=== PATIENT | male | born 1935 | race Caucasian/White ===

== ENCOUNTER 2019-05-22 11:04 | Inpatient (IN) | payer MEDICARE, MEDICAID ==
--- NOTE | 2019-05-22 11:38 | EDM.PDOC ---
ED HPI GENERAL MEDICAL PROBLEM - General Chief Complaint: Cardiovascular Problem Stated Complaint: SWOLLEN FEET, POOR APPETITIE, FALLS Time Seen by Provider: 05/22/19 11:28 Source of Information: Reports: Patient, Family History Limitations: Reports: No Limitations - History of Present Illness INITIAL COMMENTS - FREE TEXT/NARRATIVE: Presents to the emergency department today along with his son and daughter with complaints of increased fluid to the feet, and lower legs bilateral. He denies any chest pain or shortness of breath at this time. Acknowledges some urinary incontinence. Was hospitalized at [facility] in [facility], on 29 April for 3 days, secondary of elevated troponin where he experienced an KS denying open- heart surgery/stenting according to the history given by the son and daughter. [place] that it his age he was not willing to undergo this type of invasive therapy. He was discharged 3 days later using JOEL hose which he stated started cutting into his legs as he did not remove them and was wearing them 24 7. After cutting them from his legs and feet. He states the fluid may have improved slightly. His continued weakness and persistent pressure and fluid development to the lower extremities. Weakness is more exertional with decrease in appetite as well as limitations to his activity which may be related to the previous KS diagnosis. He was seen throughout numerous years through the [facility] cancer center in [place] for evaluation and treatment of prostate cancer with recent change and increased his therapy there with a scheduled three-month repeat secondary to an elevation of his PSA from the previous month checkup with PSA reading 3 at that time, now 7+ according to his son. No records are available at this time on any of these previous visits. Onset: Gradual Duration: Day(s):, Chronic, Constant, Getting Worse Location: Reports: Lower Extremity, Left, Lower Extremity, Right Quality: Reports: Pressure Severity: Moderate Improves with: Reports: None Worsens with: Reports: None Context: Reports: Activity Associated Symptoms: Reports: Loss of Appetite, Weakness - Related Data Allergies Allergy/AdvReac Type Severity Reaction Status Date / Time Sulfa (Sulfonamide Allergy Rash Verified 05/22/19 11:32 Antibiotics) Home Meds: Home Meds Enzalutamide [Xtandi] 40 mg PO DAILY 05/22/19 [History] Escitalopram [Lexapro] 10 mg PO DAILY 05/22/19 [History] Levothyroxine [Synthroid] 50 mcg PO ACBREAKFAST 05/22/19 [History] Metoprolol Tartrate [Lopressor] 12.5 mg PO BID 05/22/19 [History] atorvaSTATin [Lipitor] 40 mg PO BEDTIME 05/22/19 [History] Past Medical History HEENT History: Reports: Hard of Hearing Cardiovascular History: Reports: CAD, High Cholesterol, KS Respiratory History: Reports: None Gastrointestinal History: Reports: None Genitourinary History: Reports: BPH, Prostate Disorder Musculoskeletal History: Reports: None Psychiatric History: Reports: Depression Endocrine/Metabolic History: Reports: Hypothyroidism Hematologic History: Reports: None Immunologic History: Reports: None - Past Surgical History HEENT Surgical History: Reports: Cataract Surgery (Bilateral), Oral Surgery ( Extractions) Cardiovascular Surgical History: Reports: None Respiratory Surgical History: Reports: None GI Surgical History: Reports: Appendectomy (Ruptured in the eighth grade), Hernia, Inguinal (2 (bilateral)) Male Surgical History: Reports: Prostate Biopsy Endocrine Surgical History: Reports: None Neurological Surgical History: Reports: None Musculoskeletal Surgical History: Reports: None Social & Family History - Family History Family Medical History: Unobtainable - Tobacco Use Smoking Status *Q: Former Smoker Tobacco Use Within Last Twelve Months: Cigarettes Years of Tobacco use: 50 (Never inhaled) Used Tobacco, but Quit: Yes Second Hand Smoke Exposure: No - Caffeine Use Caffeine Use: Reports: Coffee. Denies: Energy Drinks - Alcohol Use Alcohol Use History: Yes Date of Last Drink: 03/03/14 Alcohol Use in Last Twelve Months: No - Recreational Drug Use Recreational Drug Use: No Drug Use in Last 12 Months: No - Sexual History Sexual History: Reports: Single Partner - Living Situation & Occupation Living situation: Reports: , Alone (Son and daughter speak of "hoarding " conditions of the home) Occupation: Retired ED ROS GENERAL - Review of Systems Review Of Systems: See Below Constitutional: Reports: Weakness, Fatigue, Decreased Appetite. Denies: Fever, Chills HEENT: Reports: Glasses (Reading glasses) Respiratory: Reports: Shortness of Breath Cardiovascular: Reports: Chest Pain (Thought muscle strain at time of KS in March. Intermittent feeling but no true admission of pain) Endocrine: Reports: Fatigue GI/Abdominal: Reports: Decreased Appetite : Reports: Incontinence Musculoskeletal: Reports: Other (Generalized aches and pains with weakness) Skin: Reports: Change in Color, Lesions (Left lower chest below the left nipple) Neurological: Reports: No Symptoms Psychiatric: Reports: No Symptoms Hematologic/Lymphatic: Reports: No Symptoms Immunologic: Reports: No Symptoms ED EXAM, GENERAL - Physical Exam Exam: See Below Exam Limited By: No Limitations General Appearance: Alert, WD/WN, No Apparent Distress Ears: Normal External Exam, Normal Canal, Hearing Grossly Normal, Normal TMs Nose: Normal Inspection, Normal Mucosa, No Blood Throat/Mouth: Normal Inspection, Normal Lips, Normal Oropharynx, Normal Voice, No Airway Compromise. No: Normal Teeth (Significant erosion of the upper dentition with only remnants of the front incisors. Lower dentition shows canine and incisor with erosion to the gumline's predominantly on the right side of the molars), Normal Gums Head: Atraumatic, Normocephalic Neck: Normal Inspection, Supple, Non-Tender, Full Range of Motion. No: Carotid Bruit, Lymphadenopathy (L) Respiratory/Chest: No Respiratory Distress, Lungs Clear, Normal Breath Sounds, No Accessory Muscle Use, Prolonged Expiration Cardiovascular: Normal Peripheral Pulses, Regular Rate, Rhythm (Bradycardic), No Gallop, No JVD, No Murmur, Bradycardia. No: No Edema (To the lower leg ankle and foot +3) GI/Abdominal: Normal Bowel Sounds, Soft, Non-Tender, No Distention (Male) Exam: No Hernia Rectal (Males) Exam: Normal Exam, Normal Rectal Tone, Heme - Stool. No: Prostate Normal (Enlarged), Black Stool Back Exam: Normal Inspection, Full Range of Motion Extremities: Normal Range of Motion, Non-Tender, Pedal Edema, Slow Capillary Refill Neurological: Alert, Oriented, CN II-XII Intact, Normal Cognition Psychiatric: Normal Affect, Normal Mood Skin Exam: Warm, Dry, Intact, Other (Black skin lesion 1.4 cm x 1 cm to the left lower anterior chest wall to the inferior lateral of the left nipple) Lymphatic: No Adenopathy EKG INTERPRETATION EKG Date: 05/22/19 Time: 12:09 Rhythm: Other (Bradycardia rate of 51) Rate (Beats/Min): 51 ST-T: Depressed QT: Prolonged Comparison: Change From Previous EKG EKG Interpretation Comments: Her symptoms are faxed from [facility] in [facility] with limited quality. Mr. [place] was admitted and to the best understanding offered invasive correction or his workup. I do not have any enzyme or lab results from that visit at this time but is prior EKG showed an inferior infarct of undetermined age with anterior and inferior lateral ischemic infarct changes. Today shows depressed T waves in the inferior leads as well as anterior lateral Course - Vital Signs Last Recorded V/S: Last Vital Signs Temp 36.3 C 05/22/19 11:04 Pulse 84 05/22/19 11:04 Resp 16 05/22/19 11:04 BP 120/81 05/22/19 11:04 Pulse Ox 97 05/22/19 11:04 - Orders/Labs/Meds Orders: Active Orders 24 hr Category Date Time Status EKG Documentation Completion [RC] ASDIRECTED Care 05/22/19 11:44 Active Blanchard Catheter Insertion [Insert Urinary Catheter] [OM. Care 05/22/19 12:45 Ordered PC] Q24H Urinary Catheter Assessment [RC] ASDIRECTED Care 05/22/19 12:45 Active CULTURE URINE [RM] Urgent Lab 05/22/19 12:59 Received MISCELLANEOUS CULT [MREF] Routine Lab 05/22/19 12:59 Received MISCELLANEOUS CULT [MREF] Stat Lab 05/22/19 12:59 Received PSA-EIA [REF] Stat Lab 05/22/19 11:50 Received EKG 12 Lead [EK] Routine Ther 05/22/19 11:44 Ordered Labs: Laboratory Tests 05/22/19 05/22/19 05/22/19 Range/Units 11:50 11:50 11:50 WBC 7.82 (5.00-10.00) 10^3/uL RBC 4.41 L (4.50-6.00) 10^6/uL Hgb 13.6 (13.0-17.0) g/dL Hct 40.4 (40.0-52.0) % MCV 91.6 (82.0-92.0) fL MCH 30.8 (27.0-31.0) pg MCHC 33.7 (32.0-36.0) g/dL RDW 13.8 (11.5-14.5) % Plt Count 236 (150-400) 10^3/uL MPV 10.5 H (7.4-10.4) fL Immature Gran % (Auto) 0.3 (0.0-5.0) % Neut % (Auto) 70.0 (50.0-70.0) % Lymph % (Auto) 17.9 L (20.0-40.0) % [place] % (Auto) 7.0 (2.0-8.0) % Eos % (Auto) 4.3 H (1.0-3.0) % Baso % (Auto) 0.5 (0.0-1.0) % Immature Gran # (Auto) 0.02 (0.00-0.50) 10^3/uL Neut # (Auto) 5.47 (2.50-7.00) 10^3/uL Lymph # (Auto) 1.40 (1.00-4.00) 10^3/uL [place] # (Auto) 0.55 (0.10-0.80) 10^3/uL Eos # (Auto) 0.34 H (0.10-0.30) 10^3/uL Baso # (Auto) 0.04 (0.00-0.10) 10^3/uL Sodium 145 (136-145) mmol/L Potassium 4.0 (3.3-5.3) mmol/L Chloride 105 (98-115) mmol/L Carbon Dioxide 25.0 (21.0-32.0) mmol/L Anion Gap 19.0 H (5-15) mmol/L BUN 18 (6-25) mg/dL Creatinine 1.34 H (0.51-1.17) mg/dL Est Cr Clr Drug Dosing 34.40 mL/min Estimated GFR (MDRD) 51 mL/min Glucose 68 L (75 - 99) mg/dL Calcium 9.9 (8.7-10.3) mg/dL Total Bilirubin 1.4 H (0.2-1.0) mg/dL AST 14 L (15-37) U/L ALT 12 (12-78) U/L Alkaline Phosphatase 98 (46-116) IU/L Creatine Kinase 27 (26-276) U/L CK-MB (CK-2) 1.40 (0.00-4.30) ng/mL Troponin I 0.11 H* (0.00-0.070) ng/mL B-Natriuretic Peptide 77 (0-100) pg/mL Total Protein 6.1 L (6.4-8.2) g/dL Albumin 3.24 (3.00-4.80) g/dL TSH, Ultra Sensitive 1.780 (0.340-4.820) uIU/mL Specimen Type Urine Color (YELLOW) Urine Appearance (CLEAR) Urine pH (5.0-9.0) Ur Specific [place] (1.005-1.030) Urine Protein (NEGATIVE) mg/dL Urine Glucose (UA) (NEGATIVE) mg/dL Urine Ketones (NEGATIVE) mg/dL Urine Occult Blood (NEGATIVE) Urine Nitrite (NEGATIVE) Urine Bilirubin (NEGATIVE) Urine Urobilinogen (0.2-1.0) E.U./dL Ur Leukocyte Esterase (NEGATIVE) Urine RBC (0-5) /HPF Urine WBC (0-5) /HPF Ur Epithelial Cells /LPF Urine Bacteria (NONE TO FEW) /HPF 05/22/19 Range/Units 12:59 WBC (5.00-10.00) 10^3/uL RBC (4.50-6.00) 10^6/uL Hgb (13.0-17.0) g/dL Hct (40.0-52.0) % MCV (82.0-92.0) fL MCH (27.0-31.0) pg MCHC (32.0-36.0) g/dL RDW (11.5-14.5) % Plt Count (150-400) 10^3/uL MPV (7.4-10.4) fL Immature Gran % (Auto) (0.0-5.0) % Neut % (Auto) (50.0-70.0) % Lymph % (Auto) (20.0-40.0) % [place] % (Auto) (2.0-8.0) % Eos % (Auto) (1.0-3.0) % Baso % (Auto) (0.0-1.0) % Immature Gran # (Auto) (0.00-0.50) 10^3/uL Neut # (Auto) (2.50-7.00) 10^3/uL Lymph # (Auto) (1.00-4.00) 10^3/uL [place] # (Auto) (0.10-0.80) 10^3/uL Eos # (Auto) (0.10-0.30) 10^3/uL Baso # (Auto) (0.00-0.10) 10^3/uL Sodium (136-145) mmol/L Potassium (3.3-5.3) mmol/L Chloride (98-115) mmol/L Carbon Dioxide (21.0-32.0) mmol/L Anion Gap (5-15) mmol/L BUN (6-25) mg/dL Creatinine (0.51-1.17) mg/dL Est Cr Clr Drug Dosing mL/min Estimated GFR (MDRD) mL/min Glucose (75 - 99) mg/dL Calcium (8.7-10.3) mg/dL Total Bilirubin (0.2-1.0) mg/dL AST (15-37) U/L ALT (12-78) U/L Alkaline Phosphatase (46-116) IU/L Creatine Kinase (26-276) U/L CK-MB (CK-2) (0.00-4.30) ng/mL Troponin I (0.00-0.070) ng/mL B-Natriuretic Peptide (0-100) pg/mL Total Protein (6.4-8.2) g/dL Albumin (3.00-4.80) g/dL TSH, Ultra Sensitive (0.340-4.820) uIU/mL Specimen Type . Urine Color Yellow (YELLOW) Urine Appearance Slightly cloudy H (CLEAR) Urine pH 5.5 (5.0-9.0) Ur Specific [place] 1.025 (1.005-1.030) Urine Protein 100 H (NEGATIVE) mg/dL Urine Glucose (UA) Negative (NEGATIVE) mg/dL Urine Ketones 15 H (NEGATIVE) mg/dL Urine Occult Blood Large H (NEGATIVE) Urine Nitrite Positive H (NEGATIVE) Urine Bilirubin Negative (NEGATIVE) Urine Urobilinogen 1.0 (0.2-1.0) E.U./dL Ur Leukocyte Esterase Small H (NEGATIVE) Urine RBC 75-100 H (0-5) /HPF Urine WBC 40-50 H (0-5) /HPF Ur Epithelial Cells Occasional /LPF Urine Bacteria Moderate H (NONE TO FEW) /HPF - Radiology Interpretation Free Text/Narrative:: Chest x-ray shows no evidence of hemopneumothorax, no infiltrate, old rib fractures to the left side noted. No cardiomegaly is appreciated. Extreme kyphosis noted - Re-Assessments/Exams Free Text/Narrative Re-Assessment/Exam: 05/22/19 13:54 Discussed further the aspects of the ischemic changes on his EKG which are now confirmed with a positive troponin. Departure - Departure Time of Disposition: 15:47 Disposition: Admitted As Inpatient 68 Condition: Fair Clinical Impression: KS, Myocardial infarction, Elevated troponin I level, Renal failure, Hypothyroid, Decubitus ulcer of buttock, stage 2, Skin lesion of chest wall, Pedal edema, UTI (urinary tract infection), bacterial - Discharge Information *PRESCRIPTION DRUG MONITORING PROGRAM REVIEWED*: Not Applicable *COPY OF PRESCRIPTION DRUG MONITORING REPORT IN PATIENT RHYS: Not Applicable Referrals: Latoya Brar MD [Primary Care Provider] - Forms: ED Department Discharge Additional Instructions: This case was discussed with Dr. Latoya Sneed who agrees to the admission to her services. - Problem List & Annotations (1) Elevated troponin I level SNOMED Code(s): 440066659 Code(s): R74.8 - ABNORMAL LEVELS OF OTHER SERUM ENZYMES Status: Acute Priority: High Current Visit: Yes Annotation/Comment:: Will be admitted acute rule out KS with serial enzymes (2) Renal failure SNOMED Code(s): 21179714 Code(s): N19 - UNSPECIFIED KIDNEY FAILURE Status: Acute Priority: High Current Visit: Yes Annotation/Comment:: Cautiously provide hydration due to decreased oral intake and monitor electrolytes as well as cardiovascular status Qualifiers: Renal failure chronicity: acute on chronic Chronic kidney disease stage: stage 2 (mild) (3) Hypothyroid SNOMED Code(s): 68277009 Code(s): E03.9 - HYPOTHYROIDISM, UNSPECIFIED Status: Acute Priority: Medium Current Visit: Yes Annotation/Comment:: Thyroid at this time on current dose (4) Decubitus ulcer of buttock, stage 2 SNOMED Code(s): 15804805426068965 Code(s): L89.302 - PRESSURE ULCER OF UNSPECIFIED BUTTOCK, STAGE 2 Status: Acute Priority: High Current Visit: Yes Annotation/Comment:: Bilateral superior gluteus Qualifiers: Laterality: right Qualified Code(s): L89.312 - Pressure ulcer of right buttock, stage 2 (5) Skin lesion of chest wall SNOMED Code(s): 39710504, 058051028, 812136656 Code(s): L98.9 - DISORDER OF THE SKIN AND SUBCUTANEOUS TISSUE, UNSPECIFIED Status: Chronic Priority: Medium Current Visit: Yes (6) Pedal edema SNOMED Code(s): 397171387 Code(s): R60.0 - LOCALIZED EDEMA Status: Chronic Priority: High Current Visit: Yes Annotation/Comment:: Has not resolved since discharge from [facility] may but has not been taking diuretics, or using compression stockings (7) UTI (urinary tract infection), bacterial SNOMED Code(s): 546350700 Code(s): N39.0 - URINARY TRACT INFECTION, SITE NOT SPECIFIED; A49.9 - BACTERIAL INFECTION, UNSPECIFIED Status: Acute Current Visit: Yes Annotation/Comment:: Likely due to urinary retention and incontinence (8) Decubitus ulcer of buttock, stage 2 SNOMED Code(s): 08462103546181832 Code(s): L89.302 - PRESSURE ULCER OF UNSPECIFIED BUTTOCK, STAGE 2 Status: Acute Priority: High Current Visit: Yes Annotation/Comment:: bilateral Qualifiers: Laterality: left Qualified Code(s): L89.322 - Pressure ulcer of left buttock, stage 2 - Problem List Review Problem List Initiated/Reviewed/Updated: Yes - My Orders Last 24 Hours: My Active Orders 05/22/19 11:44 EKG Documentation Completion [RC] ASDIRECTED EKG 12 Lead [EK] Routine 05/22/19 11:50 PSA-EIA [REF] Stat 05/22/19 12:45 Blanchard Catheter Insertion [Insert Urinary Catheter] [OM.PC] Q24H Urinary Catheter Assessment [RC] ASDIRECTED 05/22/19 12:59 CULTURE URINE [RM] Urgent MISCELLANEOUS CULT [MREF] Routine MISCELLANEOUS CULT [MREF] Stat - Assessment/Plan Admission H&P: Please use this note as an admission H&P Last 24 Hours: My Active Orders 05/22/19 11:44 EKG Documentation Completion [RC] ASDIRECTED EKG 12 Lead [EK] Routine 05/22/19 11:50 PSA-EIA [REF] Stat 05/22/19 12:45 Blanchard Catheter Insertion [Insert Urinary Catheter] [OM.PC] Q24H Urinary Catheter Assessment [RC] ASDIRECTED 05/22/19 12:59 CULTURE URINE [RM] Urgent MISCELLANEOUS CULT [MREF] Routine MISCELLANEOUS CULT [MREF] Stat Plan: Will be admitted to the floor acute status rule out KS with serial cardiac enzymes. Daily monitoring of CBC BMP in the a.m. We will cautiously provide IV fluid at 100 mils per hour for the remainder of the day. We'll review of bear a discharge summary once arrived for the aspect of diuretic therapy that the son Bal states was provided but is not listed in the medication list. Be admitted to Dr. Latoya Sneed service
--- NOTE | 2019-05-22 12:18 | CR ---
[id number] RAD/RAD Chest PA And Lateral EXAM: RAD Chest PA And Lateral INDICATION: FLUID RETENTION, PRIOR [place] COMPARISON: None. DISCUSSION: Cardiomediastinal silhouette is stable in size and contour. No infiltrate, effusion, pneumothorax, or edema. Pulmonary hyperinflation. IMPRESSION: No acute cardiopulmonary abnormality. Seamus Disla DO 05/22/19 [id number] Thank you for allowing us to participate in the care of your patient.
[2019-05-22] MEDS ORDERED: Heparin Sodium 5,000 Units/ML Vial SUBCUT SCH (15:45)
[2019-05-22] MEDS ORDERED: Furosemide 40 MG/4 ML VIAL IVPUSH ONE (16:06)
[2019-05-22] MEDS: Sodium Chloride 0.9% 1,000 ML IV SCH (16:30)
[2019-05-22] MEDS: Heparin Sodium 5,000 Units/ML Vial SUBCUT SCH (16:36)
[2019-05-22] MEDS: Acetaminophen 325 MG Tab PO PRN (16:41)
[2019-05-22] MEDS ORDERED: cefTRIAXone 1 GM Vial IVPUSH SCH (17:00)
[2019-05-22] MEDS ORDERED: atorvaSTATin 40 MG Tab PO SCH (21:00)
[2019-05-22] MEDS: Metoprolol Tartrate 25 MG Tab PO SCH (22:04)
[2019-05-23] MEDS: Sodium Chloride 0.9% 1,000 ML IV SCH (03:03)
[2019-05-23] MEDS: Acetaminophen 325 MG Tab PO PRN (03:04)
[2019-05-23] MEDS: Heparin Sodium 5,000 Units/ML Vial SUBCUT SCH ×2 (06:38→08:17)
[2019-05-23] MEDS ORDERED: Levothyroxine 50 MCG Tab PO SCH (07:30)
[2019-05-23 07:59] LABS: ANION GAP 15.6 mmol/L (5-15)
[2019-05-23] MEDS ORDERED: Escitalopram 10 MG Tab PO SCH (09:00)
[2019-05-23] MEDS ORDERED: ENZALUTAMIDE 40 MG PO SCH (09:00)
[2019-05-23] MEDS: Metoprolol Tartrate 25 MG Tab PO SCH (09:28)
[2019-05-23 10:11] VITALS: BP 99/62; PULSE 63
--- NOTE | 2019-05-23 10:18 | PCM.DCSUM1 ---
Discharge Summary - Hospital Course Free Text/Narrative:: Juan is being discharged from an overnight stay 05/22/19 - 05/23/19 for elevated troponin. Of note, he was admitted to [facility] in [place] for 3 days with a NSTEMI on 04/29/19 and he reportedly refused any treatment aside from the heparin drip. He declined angiogram and echocardiography. He was discharged on atorvastatin and metoprolol. His family is very concerned about See's living situation. For the past 30 years See states he has lived in a home with no running water or electricity. The home is heated with gas. He eats non-perishable food items and can cook on a gas stove. He states for bathing he will use alcohol on a wash cloth. Reportedly the home "would be condemed" per family. They had wanted to place Juan in the NH but he does not want to go there. He is also on a very expensive medication for his stage IV terminal prostate cancer, Xtandi, and reportedly even if he wanted to go to the [place] he was denied due to the cost of that medication. He is very adamant that he wants to continue on this medication. I believe the reason he came to the ER is that his family was concerned for his well-being and said he had some lower extremity edema and he was found to have this elevated troponin in the ER. He again stated that he would not want anything done for this. He was noted to have a UTI also and was given ceftriaxone. He has a sulfa allergy. His troponins trended down, initial was 0.11, repeat was 0.06 and 0.07. He never had chest pain. EKG was unchanged from prior done in March at [facility]. He was able to walk with a walker to the bathroom without assistance. He ate well here and had a BM as well. He is thin and states he wasn't eating much at home because he did not have much of an appetite. His family wanted him placed in the NH from the ER yesterday, not fully understanding that is not something we are able to do. Social work was involved in Juan's care and he is very clear he does not want to go to the [place] stating "there are over 60,000 people who live in their cars, at least I have a roof over my head. I've been living this was for 30 years and I've done alright ". He will be discharged back to home, which is certainly not an ideal home but he declines the NH and continues to want treatment for his prostate cancer. I do not have any diagnosis that would allow him to stay in the hospital and he appears able to make his own decisions. His family may need to consider getting the county involved in evaluation of his living situation and perhaps legally take steps to declare him incompetent, if that is the direction they would choose. Admission diagnoses: Elevated troponin UTI Discharge Diagnoses: Elevated troponin, possible NSTEMI, patient declined treatment or transfer, troponins have normalized. UTI, will treat with Keflex 500 mg PO TID x 14 days. Blanchard catheter was placed upon admission but removed prior to discharge. Secondary, chronic diagnoses: Lower extremity edema, mild Stage IV prostate cancer Hypothyoridism Vit B12 deficiency CKD Depression Protein calorie malnutrition, Low BMI 17.8 with reduced oral intake. He has CKD and malignant disease Unsteady gait, uses a walker, no problems with ambulation during this stay Diagnosis: Stroke: No Modified Savage Scale: No Symptoms at All Modified [place] Scale Score: 0 - Discharge Data Discharge Date: 05/23/19 Discharge Disposition: Home, Self-Care 01 Condition: Fair - Referral to Home Health Primary Care Physician: Latoya Brar MD - Patient Summary/Data Consults: Consultations 05/22/19 16:17 Consult to Case Management/Track Mechanic [CONS] Routine 05/22/19 17:54 Consult to Dietary [Consult to Record Producer] [CONS] Routine Labs Pending at D/C: Urine culture - Patient Instructions Diet: Usual Diet as Tolerated - Discharge Plan *PRESCRIPTION DRUG MONITORING PROGRAM REVIEWED*: Not Applicable *COPY OF PRESCRIPTION DRUG MONITORING REPORT IN PATIENT RHYS: Not Applicable Prescriptions/Med Rec: Cephalexin [Keflex] 500 mg PO TID 14 Days #42 capsule Home Medications: Home Meds Enzalutamide [Xtandi] 160 mg PO DAILY 05/22/19 [History] Escitalopram [Lexapro] 10 mg PO DAILY 05/22/19 [History] Levothyroxine [Synthroid] 50 mcg PO ACBREAKFAST 05/22/19 [History] Metoprolol Tartrate [Lopressor] 12.5 mg PO BID 05/22/19 [History] atorvaSTATin [Lipitor] 40 mg PO BEDTIME 05/22/19 [History] Cephalexin [Keflex] 500 mg PO TID 14 Days #42 capsule 05/23/19 [Rx] Forms: ED Department Discharge - Discharge Summary/Plan Comment DC Time >30 min.: No - General Info Date of Service: 05/23/19 - Patient Data Vitals - Most Recent: Last Vital Signs Temp 97.0 F 05/23/19 07:00 Pulse 63 05/23/19 09:28 Resp 20 05/23/19 07:00 BP 99/62 05/23/19 09:28 Pulse Ox 95 05/23/19 07:00 Weight - Most Recent: 110 lb I&O - Last 24 hours: Intake & Output 05/22/19 05/23/19 05/23/19 22:59 06:59 14:59 Intake Total 820 900 Output Total 400 500 Balance 420 400 Lab Results - Last 24 hrs: Laboratory Results - last 24 hr 05/22/19 05/22/19 05/22/19 Range/Units 11:50 11:50 11:50 WBC 7.82 (5.00-10.00) 10^3/uL RBC 4.41 L (4.50-6.00) 10^6/uL Hgb 13.6 (13.0-17.0) g/dL Hct 40.4 (40.0-52.0) % MCV 91.6 (82.0-92.0) fL MCH 30.8 (27.0-31.0) pg MCHC 33.7 (32.0-36.0) g/dL RDW 13.8 (11.5-14.5) % Plt Count 236 (150-400) 10^3/uL MPV 10.5 H (7.4-10.4) fL Immature Gran % (Auto) 0.3 (0.0-5.0) % Neut % (Auto) 70.0 (50.0-70.0) % Lymph % (Auto) 17.9 L (20.0-40.0) % [place] % (Auto) 7.0 (2.0-8.0) % Eos % (Auto) 4.3 H (1.0-3.0) % Baso % (Auto) 0.5 (0.0-1.0) % Immature Gran # (Auto) 0.02 (0.00-0.50) 10^3/uL Neut # (Auto) 5.47 (2.50-7.00) 10^3/uL Lymph # (Auto) 1.40 (1.00-4.00) 10^3/uL [place] # (Auto) 0.55 (0.10-0.80) 10^3/uL Eos # (Auto) 0.34 H (0.10-0.30) 10^3/uL Baso # (Auto) 0.04 (0.00-0.10) 10^3/uL Sodium 145 (136-145) mmol/L Potassium 4.0 (3.3-5.3) mmol/L Chloride 105 (98-115) mmol/L Carbon Dioxide 25.0 (21.0-32.0) mmol/L Anion Gap 19.0 H (5-15) mmol/L BUN 18 (6-25) mg/dL Creatinine 1.34 H (0.51-1.17) mg/dL Est Cr Clr Drug Dosing 34.40 mL/min Estimated GFR (MDRD) 51 mL/min Glucose 68 L (75 - 99) mg/dL Calcium 9.9 (8.7-10.3) mg/dL Total Bilirubin 1.4 H (0.2-1.0) mg/dL AST 14 L (15-37) U/L ALT 12 (12-78) U/L Alkaline Phosphatase 98 (46-116) IU/L Creatine Kinase 27 (26-276) U/L CK-MB (CK-2) 1.40 (0.00-4.30) ng/mL Troponin I 0.11 H* (0.00-0.070) ng/mL B-Natriuretic Peptide 77 (0-100) pg/mL Total Protein 6.1 L (6.4-8.2) g/dL Albumin 3.24 (3.00-4.80) g/dL TSH, Ultra Sensitive 1.780 (0.340-4.820) uIU/mL Specimen Type Urine Color (YELLOW) Urine Appearance (CLEAR) Urine pH (5.0-9.0) Ur Specific [place] (1.005-1.030) Urine Protein (NEGATIVE) mg/dL Urine Glucose (UA) (NEGATIVE) mg/dL Urine Ketones (NEGATIVE) mg/dL Urine Occult Blood (NEGATIVE) Urine Nitrite (NEGATIVE) Urine Bilirubin (NEGATIVE) Urine Urobilinogen (0.2-1.0) E.U./dL Ur Leukocyte Esterase (NEGATIVE) Urine RBC (0-5) /HPF Urine WBC (0-5) /HPF Ur Epithelial Cells /LPF Urine Bacteria (NONE TO FEW) /HPF 05/22/19 05/22/19 05/23/19 Range/Units 12:59 18:00 07:25 WBC 9.28 (5.00-10.00) 10^3/uL RBC 4.35 L (4.50-6.00) 10^6/uL Hgb 13.4 (13.0-17.0) g/dL Hct 39.1 L (40.0-52.0) % MCV 89.9 (82.0-92.0) fL MCH 30.8 (27.0-31.0) pg MCHC 34.3 (32.0-36.0) g/dL RDW 13.8 (11.5-14.5) % Plt Count 224 (150-400) 10^3/uL MPV 10.9 H (7.4-10.4) fL Immature Gran % (Auto) 0.2 (0.0-5.0) % Neut % (Auto) 71.1 H (50.0-70.0) % Lymph % (Auto) 17.2 L (20.0-40.0) % [place] % (Auto) 6.4 (2.0-8.0) % Eos % (Auto) 4.5 H (1.0-3.0) % Baso % (Auto) 0.6 (0.0-1.0) % Immature Gran # (Auto) 0.02 (0.00-0.50) 10^3/uL Neut # (Auto) 6.59 (2.50-7.00) 10^3/uL Lymph # (Auto) 1.60 (1.00-4.00) 10^3/uL [place] # (Auto) 0.59 (0.10-0.80) 10^3/uL Eos # (Auto) 0.42 H (0.10-0.30) 10^3/uL Baso # (Auto) 0.06 (0.00-0.10) 10^3/uL Sodium (136-145) mmol/L Potassium (3.3-5.3) mmol/L Chloride (98-115) mmol/L Carbon Dioxide (21.0-32.0) mmol/L Anion Gap (5-15) mmol/L BUN (6-25) mg/dL Creatinine (0.51-1.17) mg/dL Est Cr Clr Drug Dosing mL/min Estimated GFR (MDRD) mL/min Glucose (75 - 99) mg/dL Calcium (8.7-10.3) mg/dL Total Bilirubin (0.2-1.0) mg/dL AST (15-37) U/L ALT (12-78) U/L Alkaline Phosphatase (46-116) IU/L Creatine Kinase (26-276) U/L CK-MB (CK-2) (0.00-4.30) ng/mL Troponin I 0.06 (0.00-0.070) ng/mL B-Natriuretic Peptide (0-100) pg/mL Total Protein (6.4-8.2) g/dL Albumin (3.00-4.80) g/dL TSH, Ultra Sensitive (0.340-4.820) uIU/mL Specimen Type . Urine Color Yellow (YELLOW) Urine Appearance Slightly cloudy H (CLEAR) Urine pH 5.5 (5.0-9.0) Ur Specific [place] 1.025 (1.005-1.030) Urine Protein 100 H (NEGATIVE) mg/dL Urine Glucose (UA) Negative (NEGATIVE) mg/dL Urine Ketones 15 H (NEGATIVE) mg/dL Urine Occult Blood Large H (NEGATIVE) Urine Nitrite Positive H (NEGATIVE) Urine Bilirubin Negative (NEGATIVE) Urine Urobilinogen 1.0 (0.2-1.0) E.U./dL Ur Leukocyte Esterase Small H (NEGATIVE) Urine RBC 75-100 H (0-5) /HPF Urine WBC 40-50 H (0-5) /HPF Ur Epithelial Cells Occasional /LPF Urine Bacteria Moderate H (NONE TO FEW) /HPF 05/23/19 Range/Units 07:25 WBC (5.00-10.00) 10^3/uL RBC (4.50-6.00) 10^6/uL Hgb (13.0-17.0) g/dL Hct (40.0-52.0) % MCV (82.0-92.0) fL MCH (27.0-31.0) pg MCHC (32.0-36.0) g/dL RDW (11.5-14.5) % Plt Count (150-400) 10^3/uL MPV (7.4-10.4) fL Immature Gran % (Auto) (0.0-5.0) % Neut % (Auto) (50.0-70.0) % Lymph % (Auto) (20.0-40.0) % [place] % (Auto) (2.0-8.0) % Eos % (Auto) (1.0-3.0) % Baso % (Auto) (0.0-1.0) % Immature Gran # (Auto) (0.00-0.50) 10^3/uL Neut # (Auto) (2.50-7.00) 10^3/uL Lymph # (Auto) (1.00-4.00) 10^3/uL [place] # (Auto) (0.10-0.80) 10^3/uL Eos # (Auto) (0.10-0.30) 10^3/uL Baso # (Auto) (0.00-0.10) 10^3/uL Sodium 145 (136-145) mmol/L Potassium 3.8 (3.3-5.3) mmol/L Chloride 105 (98-115) mmol/L Carbon Dioxide 28.2 (21.0-32.0) mmol/L Anion Gap 15.6 H (5-15) mmol/L BUN 21 (6-25) mg/dL Creatinine 1.31 H (0.51-1.17) mg/dL Est Cr Clr Drug Dosing 31.21 mL/min Estimated GFR (MDRD) 53 mL/min Glucose 86 (75 - 99) mg/dL Calcium 9.2 (8.7-10.3) mg/dL Total Bilirubin (0.2-1.0) mg/dL AST (15-37) U/L ALT (12-78) U/L Alkaline Phosphatase (46-116) IU/L Creatine Kinase (26-276) U/L CK-MB (CK-2) (0.00-4.30) ng/mL Troponin I 0.07 (0.00-0.070) ng/mL B-Natriuretic Peptide (0-100) pg/mL Total Protein (6.4-8.2) g/dL Albumin (3.00-4.80) g/dL TSH, Ultra Sensitive (0.340-4.820) uIU/mL Specimen Type Urine Color (YELLOW) Urine Appearance (CLEAR) Urine pH (5.0-9.0) Ur Specific [place] (1.005-1.030) Urine Protein (NEGATIVE) mg/dL Urine Glucose (UA) (NEGATIVE) mg/dL Urine Ketones (NEGATIVE) mg/dL Urine Occult Blood (NEGATIVE) Urine Nitrite (NEGATIVE) Urine Bilirubin (NEGATIVE) Urine Urobilinogen (0.2-1.0) E.U./dL Ur Leukocyte Esterase (NEGATIVE) Urine RBC (0-5) /HPF Urine WBC (0-5) /HPF Ur Epithelial Cells /LPF Urine Bacteria (NONE TO FEW) /HPF TARYN Results - Last 24 hrs: Microbiology 05/22/19 12:15 Stool Occult Blood (TARYN) - Final Stool / Feces NEGATIVE OCCULT BLOOD REFERENCE RANGE: NEGATIVE Med Orders - Current: Current Medications Acetaminophen (Tylenol) 650 mg PO Q4H PRN PRN Reason: analgesia/fever Last Admin: 05/23/19 03:04 Dose: 650 mg Atorvastatin Calcium (Lipitor) 40 mg PO BEDTIME [facility] Last Admin: 05/22/19 22:05 Dose: 40 mg Ceftriaxone Sodium (Rocephin) 1 gm IVPUSH Q24H [facility] Last Admin: 05/22/19 17:14 Dose: 1 gm Escitalopram Oxalate (Lexapro) 10 mg PO DAILY [facility] Last Admin: 05/23/19 09:23 Dose: 10 mg Heparin Sodium (Porcine) (Heparin Sodium) 5,000 units SUBCUT BID [facility] Last Admin: 05/23/19 08:17 Dose: Not Given Sodium Chloride (Normal Saline) 1,000 mls @ 100 mls/hr IV ASDIRECTED [facility] Last Admin: 05/23/19 03:03 Dose: 100 mls/hr Levothyroxine Sodium (Synthroid) 50 mcg PO ACBREAKFAST [facility] Last Admin: 05/23/19 06:38 Dose: 50 mcg Metoprolol Tartrate (Lopressor) 12.5 mg PO BID [facility] Last Admin: 05/23/19 09:28 Dose: 12.5 mg Enzalutamide (Xtandi ) 40 Mg Caps Own Med 0 mg PO DAILY [facility] Discontinued Medications Furosemide (Lasix) 10 mg IVPUSH NOW ONE Stop: 05/22/19 16:07 Last Admin: 05/22/19 16:35 Dose: 10 mg Heparin Sodium (Porcine) (Heparin Sodium) units SUBCUT Q8H [facility] - Exam General: Reports: Alert, Oriented, Cooperative, No Acute Distress, Other (Thin) Lungs: Reports: Clear to Auscultation, Normal Respiratory Effort Cardiovascular: Reports: Regular Rate, Regular Rhythm, No Murmurs
[2019-05-23] MEDS ORDERED: Loperamide 2 MG Cap PO ONE (14:24)
== END 2019-05-23 16:10 | disposition home or self-care (01) | DRG 281 ==
LOC: KA.ED 11:04 → KA.MS 15:00
PROVIDERS: ADMIT Nurse Practitioner; ATTEND Internal Medicine
DX: I21.4 Non-ST elevation (NSTEMI) myocardial infarction (principal); R79.89 Other specified abnormal findings of blood chemistry; N39.0 Urinary tract infection, site not specified; E44.0 Moderate protein-calorie malnutrition; B96.89 Other specified bacterial agents as the cause of diseases classified elsewhere; R60.0 Localized edema; L89.302 Pressure ulcer of unspecified buttock, stage 2; L98.8 Other specified disorders of the skin and subcutaneous tissue; Z68.1 Body mass index [BMI] 19.9 or less, adult; R53.1 Weakness; R53.83 Other fatigue; R06.02 Shortness of breath; N17.9 Acute kidney failure, unspecified; C61 Malignant neoplasm of prostate; E03.9 Hypothyroidism, unspecified; N40.1 Benign prostatic hyperplasia with lower urinary tract symptoms; N39.498 Other specified urinary incontinence; E53.8 Deficiency of other specified B group vitamins; R26.9 Unspecified abnormalities of gait and mobility; I25.10 Atherosclerotic heart disease of native coronary artery without angina pectoris; E78.00 Pure hypercholesterolemia, unspecified; I25.2 Old myocardial infarction; F32.9 Major depressive disorder, single episode, unspecified; N18.2 Chronic kidney disease, stage 2 (mild); L89.312 Pressure ulcer of right buttock, stage 2; L98.9 Disorder of the skin and subcutaneous tissue, unspecified; A49.9 Bacterial infection, unspecified; L89.322 Pressure ulcer of left buttock, stage 2; Z79.890 Hormone replacement therapy; Z79.899 Other long term (current) drug therapy; Z88.2 Allergy status to sulfonamides; Z98.49 Cataract extraction status, unspecified eye; Z90.49 Acquired absence of other specified parts of digestive tract; Z87.891 Personal history of nicotine dependence; Z79.82 Long term (current) use of aspirin
CPT/HCPCS: 36415; 51702; 71046; 80048; 80053; 81001; 82272; 82550; 82553; 83880; 84153; 84443; 84484; 85025; 87070; 87086; 87205; 93005; 99223; 99285-25; A9270-GY; J0696; J1644; J1940; J7030

== ENCOUNTER 2019-05-23 18:15 | Inpatient (IN) | payer MEDICARE, MEDICAID ==
[2019-05-23] MEDS ORDERED: Sodium Chloride 0.9% 10 ML Syringe FLUSH PRN (18:38)
[2019-05-23] MEDS ORDERED: Sodium Chloride 0.9% 1,000 ML IV SCH ×3 (18:45→20:00)
--- NOTE | 2019-05-23 19:08 | EDM.PDOC ---
ED HPI GENERAL MEDICAL PROBLEM - General Chief Complaint: General Stated Complaint: Syncope Time Seen by Provider: 05/23/19 18:40 Source of Information: Reports: Patient, EMS History Limitations: Reports: No Limitations - History of Present Illness INITIAL COMMENTS - FREE TEXT/NARRATIVE: 83 YO WM presents to ER by EMS after episode of syncope at home tonight. Pt was seen in ER yesterday and admitted to hospital for weakness and UTI. Pt was found to have an elevated trop I in ERE yesterday following a NSTEMI on 2018. Pt denied chest pain during hospitalization. Pt reports he has no energy. Pt states after leaving the hospital today he was to weak to ambulate on his own. Pt reports his son had to assist him. Pt reports after getting into the house he "passed out". Pt denies chest pain, shortness of breath, diaphoresis, nausea/vomiting. Pt reports mild dizziness with sitting and standing. Pt is currently alert and oriented x 4. Pt states he's depressed and has a poor appetite leading to weight loss. Pt with history of longstanding Prostate CA. Onset: Today Duration: Recurring Location: Reports: Generalized Severity: Mild Improves with: Reports: None Worsens with: Reports: Movement (ambulation) Associated Symptoms: Reports: Malaise, Syncope, Weakness. Denies: Confusion, Chest Pain, Cough, Diaphoresis, Fever/Chills, Headaches, Loss of Appetite, Rash , Seizure, Shortness of Breath - Related Data Allergies Allergy/AdvReac Type Severity Reaction Status Date / Time Sulfa (Sulfonamide Allergy Rash Verified 05/22/19 11:32 Antibiotics) Home Meds: Home Meds Enzalutamide [Xtandi] 160 mg PO DAILY 05/22/19 [History] Escitalopram [Lexapro] 10 mg PO DAILY 05/22/19 [History] Levothyroxine [Synthroid] 50 mcg PO ACBREAKFAST 05/22/19 [History] Metoprolol Tartrate [Lopressor] 12.5 mg PO BID 05/22/19 [History] atorvaSTATin [Lipitor] 40 mg PO BEDTIME 05/22/19 [History] Aspirin 325 mg PO DAILY 05/23/19 [History] Cephalexin [Keflex] 500 mg PO TID 14 Days #42 capsule 05/23/19 [Rx] Past Medical History HEENT History: Reports: Hard of Hearing, Impaired Vision Cardiovascular History: Reports: CAD, High Cholesterol, CT Respiratory History: Reports: None Gastrointestinal History: Reports: None Genitourinary History: Reports: BPH, Prostate Disorder Other Genitourinary History: CKD Stage3 Musculoskeletal History: Reports: None Psychiatric History: Reports: Depression Endocrine/Metabolic History: Reports: Hypothyroidism Hematologic History: Reports: None Immunologic History: Reports: None Oncologic (Cancer) History: Reports: Prostate - Past Surgical History Head Surgeries/Procedures: Reports: None HEENT Surgical History: Reports: Cataract Surgery, Oral Surgery Cardiovascular Surgical History: Reports: None Respiratory Surgical History: Reports: None GI Surgical History: Reports: Appendectomy, Hernia, Inguinal Male Surgical History: Reports: Prostate Biopsy Endocrine Surgical History: Reports: None Neurological Surgical History: Reports: None Musculoskeletal Surgical History: Reports: None Social & Family History - Family History Family Medical History: Unobtainable - Tobacco Use Smoking Status *Q: Former Smoker Used Tobacco, but Quit: Yes Month/Year Tobacco Last Used: May 01, 2019 - Caffeine Use Caffeine Use: Reports: Coffee - Recreational Drug Use Recreational Drug Use: No - Sexual History Sexual History: Reports: Single Partner - Living Situation & Occupation Living situation: Reports: , Alone (Son and daughter speak of "hoarding " conditions of the home) Occupation: Retired ED ROS GENERAL - Review of Systems Review Of Systems: See Below Constitutional: Reports: Malaise, Weakness, Fatigue, Weight Loss HEENT: Reports: No Symptoms Respiratory: Reports: No Symptoms Cardiovascular: Reports: Lightheadedness Endocrine: Reports: Fatigue GI/Abdominal: Reports: No Symptoms : Reports: No Symptoms Musculoskeletal: Reports: No Symptoms Skin: Reports: No Symptoms Neurological: Reports: Dizziness, Syncope, Weakness. Denies: Headache, Numbness , Paresthesia, Seizure, Tingling, Trouble Speaking, Change in Speech, Gait Disturbance Psychiatric: Reports: No Symptoms Hematologic/Lymphatic: Reports: No Symptoms Immunologic: Reports: No Symptoms ED EXAM, GENERAL - Physical Exam Exam: See Below Exam Limited By: No Limitations General Appearance: Alert, WD/WN, No Apparent Distress Eye Exam: Bilateral Eye: EOMI, PERRL Head: Atraumatic, Normocephalic Neck: Normal Inspection, Supple, Non-Tender, Full Range of Motion Respiratory/Chest: No Respiratory Distress, Lungs Clear, Normal Breath Sounds, No Accessory Muscle Use, Chest Non-Tender Cardiovascular: Normal Peripheral Pulses, Regular Rate, Rhythm, No Edema, No Gallop, No JVD, No Murmur, No Rub, Bradycardia GI/Abdominal: Normal Bowel Sounds, Soft, Non-Tender, No Organomegaly, No Distention, No Abnormal Bruit, No Mass Back Exam: Normal Inspection Extremities: Normal Inspection, Normal Range of Motion, Non-Tender, Normal Capillary Refill, No Pedal Edema Neurological: Alert, Oriented, CN II-XII Intact, Normal Cognition, Normal Gait, Normal Reflexes, No Motor/Sensory Deficits Psychiatric: Normal Affect, Depressed Mood Skin Exam: Warm, Dry, Intact, Normal Color, No Rash Lymphatic: No Adenopathy EKG INTERPRETATION EKG Date: 05/23/19 Time: 18:34 Rhythm: NSR Rate (Beats/Min): 49 [place]: Normal P-Wave: Present QRS: Normal ST-T: Depressed QT: Normal Comparison: No Change (05/23/2019) Course - Vital Signs Last Recorded V/S: Last Vital Signs Temp 36.4 C 05/23/19 18:18 Pulse 50 L 05/23/19 18:45 Resp 20 05/23/19 18:18 BP 97/68 05/23/19 18:45 Pulse Ox 97 05/23/19 18:18 Orthostatic Blood Pressure [ 80/42 Standing] Orthostatic Blood Pressure [ 88/45 Sitting] Orthostatic Blood Pressure [ 106/62 Supine] - Orders/Labs/Meds Orders: Active Orders 24 hr Category Date Time Status EKG Documentation Completion [RC] ASDIRECTED Care 05/23/19 18:38 Active EKG Documentation Completion [RC] ASDIRECTED Care 05/23/19 18:47 Inactive Orthostatic Vital Signs [RC] ASDIRECTED Care 05/23/19 18:53 Active Peripheral IV Care [RC] . DIRECTED Care 05/23/19 18:38 Active Sodium Chloride 0.9% [Normal Saline] 1,000 ml Med 05/23/19 18:45 Active IV ASDIRECTED Sodium Chloride 0.9% [Saline Flush] Med 05/23/19 18:38 Active 10 ml FLUSH Q8HR PRN Peripheral IV Insertion Adult [OM.PC] Routine Oth 05/23/19 18:38 Ordered EKG 12 Lead [EK] Routine Ther 05/23/19 18:38 Ordered EKG 12 Lead [EK] Routine Ther 05/23/19 18:47 Stop Req Medication Orders Sodium Chloride (Normal Saline) 1,000 mls @ 125 mls/hr IV ASDIRECTED [facility]OL[facility] Last Admin: 05/23/19 18:46 Dose: 125 mls/hr Sodium Chloride (Saline Flush) 10 ml FLUSH Q8HR PRN PRN Reason: keep vein open Labs: Laboratory Tests 05/23/19 05/23/19 Range/Units 18:40 18:40 WBC 11.77 H (5.00-10.00) 10^3/uL RBC 4.05 L (4.50-6.00) 10^6/uL Hgb 12.5 L (13.0-17.0) g/dL Hct 36.4 L (40.0-52.0) % MCV 89.9 (82.0-92.0) fL MCH 30.9 (27.0-31.0) pg MCHC 34.3 (32.0-36.0) g/dL RDW 13.8 (11.5-14.5) % Plt Count 216 (150-400) 10^3/uL MPV 11.3 H (7.4-10.4) fL Immature Gran % (Auto) 0.4 (0.0-5.0) % Neut % (Auto) 81.1 H (50.0-70.0) % Lymph % (Auto) 9.9 L (20.0-40.0) % [place] % (Auto) 6.5 (2.0-8.0) % Eos % (Auto) 1.7 (1.0-3.0) % Baso % (Auto) 0.4 (0.0-1.0) % Immature Gran # (Auto) 0.05 (0.00-0.50) 10^3/uL Neut # (Auto) 9.55 H (2.50-7.00) 10^3/uL Lymph # (Auto) 1.16 (1.00-4.00) 10^3/uL [place] # (Auto) 0.76 (0.10-0.80) 10^3/uL Eos # (Auto) 0.20 (0.10-0.30) 10^3/uL Baso # (Auto) 0.05 (0.00-0.10) 10^3/uL Sodium 144 (136-145) mmol/L Potassium 3.2 L (3.3-5.3) mmol/L Chloride 108 (98-115) mmol/L Carbon Dioxide 27.8 (21.0-32.0) mmol/L Anion Gap 11.4 (5-15) mmol/L BUN 21 (6-25) mg/dL Creatinine 1.24 H (0.51-1.17) mg/dL Est Cr Clr Drug Dosing 32.97 mL/min Estimated GFR (MDRD) 56 mL/min Glucose 145 H (75 - 99) mg/dL Calcium 8.9 (8.7-10.3) mg/dL Total Bilirubin 0.8 (0.2-1.0) mg/dL AST 19 (15-37) U/L ALT 11 L (12-78) U/L Alkaline Phosphatase 85 (46-116) IU/L Creatine Kinase 43 (26-276) U/L CK-MB (CK-2) 1.40 (0.00-4.30) ng/mL Troponin I 0.07 (0.00-0.070) ng/mL Total Protein 5.0 L (6.4-8.2) g/dL Albumin 2.55 L (3.00-4.80) g/dL Meds: Medications Generic Name Dose Route Start Last Admin Trade Name Freq PRN Reason Stop Dose Admin Sodium Chloride 1,000 mls @ 125 mls/hr 05/23/19 18:45 05/23/19 18:46 Normal Saline IV 125 mls/hr ASDIRECTED ROLA Administration Sodium Chloride 10 ml 05/23/19 18:38 Saline Flush FLUSH Q8HR PRN keep vein open Discontinued Medications Generic Name Dose Route Start Last Admin Trade Name Freq PRN Reason Stop Dose Admin Sodium Chloride 1,000 mls @ 125 mls/hr 05/23/19 19:00 Normal Saline IV ASDIRECTED ROLA - Radiology Interpretation Free Text/Narrative:: CXR-NAD; hyperinflated CT Head- NAD Departure - Departure Time of Disposition: 19:43 Disposition: Admitted As Inpatient 68 Condition: Fair Clinical Impression: Orthostatic hypotension, Weakness - Discharge Information Referrals: Latoya Brar MD [Primary Care Provider] - Forms: ED Department Discharge - My Orders Last 24 Hours: My Active Orders 05/23/19 18:38 EKG Documentation Completion [RC] ASDIRECTED Peripheral IV Care [RC] . DIRECTED Sodium Chloride 0.9% [Saline Flush] 10 ml FLUSH Q8HR PRN Peripheral IV Insertion Adult [OM.PC] Routine EKG 12 Lead [EK] Routine 05/23/19 18:45 Sodium Chloride 0.9% [Normal Saline] 1,000 ml IV ASDIRECTED 05/23/19 18:47 EKG Documentation Completion [RC] ASDIRECTED EKG 12 Lead [EK] Routine 05/23/19 18:53 Orthostatic Vital Signs [RC] ASDIRECTED - Assessment/Plan Last 24 Hours: My Active Orders 05/23/19 18:38 EKG Documentation Completion [RC] ASDIRECTED Peripheral IV Care [RC] . DIRECTED Sodium Chloride 0.9% [Saline Flush] 10 ml FLUSH Q8HR PRN Peripheral IV Insertion Adult [OM.PC] Routine EKG 12 Lead [EK] Routine 05/23/19 18:45 Sodium Chloride 0.9% [Normal Saline] 1,000 ml IV ASDIRECTED 05/23/19 18:47 EKG Documentation Completion [RC] ASDIRECTED EKG 12 Lead [EK] Routine 05/23/19 18:53 Orthostatic Vital Signs [RC] ASDIRECTED Assessment:: 1. Syncope 2. orthostatic hypotension 3. weakness 4. dehydration Plan: 1. admit to medicine- Dr Meyer 2. IVF- NS@125cc/hr 3. hold metoprolol 4. repeat trop I 5. consider placement in NH 6. supportive care
[2019-05-23 19:11] LABS: ANION GAP 11.4 mmol/L (5-15)
--- NOTE | 2019-05-23 19:24 | CR ---
[id number] RAD/RAD Chest PA or AP 1V EXAM: FRONTAL CHEST INDICATION: Syncope. COMPARISON: May 22, 2019. DISCUSSION: Prominence of the central pulmonary arteries may relate to pulmonary hypertension. The heart is normal in size. The lungs are clear. Small hiatus hernia. IMPRESSION: 1. No acute findings. Olvin Pereira MD 05/24/19 0945 Thank you for allowing us to participate in the care of your patient.
--- NOTE | 2019-05-23 19:40 | CT ---
[id number] CT/CT Head WO IV EXAM: NONCONTRAST HEAD CT INDICATION: Syncope. COMPARISON: None. DISCUSSION: Mild to moderate generalized atrophy. Mild multifocal white matter hypoattenuation is nonspecific, but generally ascribed to chronic small vessel ischemia. No mass effect or midline shift. No acute hemorrhage or extra-axial fluid collection. No acute territorial infarct is identified. A limited look at the orbits and paranasal sinuses is unremarkable. IMPRESSION: 1. No acute findings. Olvin Pereira MD 05/23/19 1939 Thank you for allowing us to participate in the care of your patient.
[2019-05-23] MEDS ORDERED: Potassium Chloride 20 MEQ Tab.ER PO ONE (19:56)
[2019-05-23] MEDS: atorvaSTATin 40 MG Tab PO SCH (21:52)
[2019-05-24] MEDS: Levothyroxine 50 MCG Tab PO SCH (06:33)
[2019-05-24 07:55] LABS: ANION GAP 12.4 mmol/L (5-15); CHLORIDE,CL 108 mmol/L (98-115); SODIUM,NA 144 mmol/L (136-145)
[2019-05-24] MEDS: Escitalopram 10 MG Tab PO SCH (08:40)
[2019-05-24] MEDS: Aspirin 325 MG Tab.EC PO SCH (08:40)
--- NOTE | 2019-05-24 09:00 | PCM.PN ---
- General Info Date of Service: 05/24/19 Admission Dx/Problem (Free Text): Syncope - Review of Systems Systems Review Comment:: Juan is seen today on inpatient rounds. He was actually admitted through the ER on 05/22/19 with slightly swollen ankles and found to have an elevated troponin in the context of a NSTEMI he declined therapy for in March of 2019 with a stay at [facility] in [place]. He had only 1 elevated troponin at 0.11 without EKG changes. He had not been taking his atorvastatin or metopolol that he was prescribed at discharged from [facility]. These were restarted. He had 2 subsequent negative troponins with no EKG changes. He had a UTI that was treated with a dose or rocephin and he was discharged on 05/23/19 to home. He had no criteria for admission and had been able to walk independently in the hospital. Of note, his family wants him admitted to the [place]. Reportedly this has been challenging because of a medication he is on for prostate cancer (Xtandi), which is expensive and apparently [facility] are not wanting to accept him on this medication. Also of note, Juan wants to stay at home. He lives in a home with no electricity and no running water. He has lived like this for many years. He has said repeatedly "I will kill myself if I have to go to the [place]". He states he has had thoughts of suicide for over 30 years. Currently he is on Lexapro. When he arrived home he states that he tried to get over the threshhold to his home and he felt weak and had a syncopal episode. The ambulance was called and he was returned to the ER. He was noted to be orthostatic in the ER. He was admitted due to inability to care for self. In further discussion with him, he states he has had incontinence issues for over 30 years and his son washes his clothes for him. He only eats food once per day, largely canned food such as chili or beans. He will occasionally have bread and peanut butter. He has a stove that is operated with gas and gas heats his home. He uses "buckets of rain water" to flush his toilet. He takes a bath with a washcloth with alcohol on it. He does not leave his home other than to attend medical appointments with Dr. Melton, his oncologist. He tells me today, "I'm just weak, I need about 10 days here and I'll be as good as new." - Patient Data Vitals - Most Recent: Last Vital Signs Temp 98.9 F 05/24/19 07:00 Pulse 56 L 05/24/19 07:00 Resp 16 05/24/19 07:00 BP 113/66 05/24/19 07:00 Pulse Ox 96 05/24/19 07:05 Orthostatic Blood Pressure [ 80/42 Standing] Orthostatic Blood Pressure [ 88/45 Sitting] Orthostatic Blood Pressure [ 106/62 Supine] Weight - Most Recent: 110 lb I&O - Last 24 Hours: Intake & Output 05/23/19 05/24/19 05/24/19 22:59 06:59 14:59 Intake Total 50 1000 Output Total 150 300 Balance -100 700 Lab Results Last 24 Hours: Laboratory Results - last 24 hr 05/23/19 05/23/19 05/24/19 Range/Units 18:40 18:40 07:10 WBC 11.77 H 10.44 H (5.00-10.00) 10^3/uL RBC 4.05 L 4.09 L (4.50-6.00) 10^6/uL Hgb 12.5 L 12.6 L (13.0-17.0) g/dL Hct 36.4 L 37.3 L (40.0-52.0) % MCV 89.9 91.2 (82.0-92.0) fL MCH 30.9 30.8 (27.0-31.0) pg MCHC 34.3 33.8 (32.0-36.0) g/dL RDW 13.8 14.0 (11.5-14.5) % Plt Count 216 212 (150-400) 10^3/uL MPV 11.3 H 11.3 H (7.4-10.4) fL Immature Gran % (Auto) 0.4 0.3 (0.0-5.0) % Neut % (Auto) 81.1 H 76.6 H (50.0-70.0) % Lymph % (Auto) 9.9 L 13.6 L (20.0-40.0) % [place] % (Auto) 6.5 6.0 (2.0-8.0) % Eos % (Auto) 1.7 3.1 H (1.0-3.0) % Baso % (Auto) 0.4 0.4 (0.0-1.0) % Immature Gran # (Auto) 0.05 0.03 (0.00-0.50) 10^3/uL Neut # (Auto) 9.55 H 8.00 H (2.50-7.00) 10^3/uL Lymph # (Auto) 1.16 1.42 (1.00-4.00) 10^3/uL [place] # (Auto) 0.76 0.63 (0.10-0.80) 10^3/uL Eos # (Auto) 0.20 0.32 H (0.10-0.30) 10^3/uL Baso # (Auto) 0.05 0.04 (0.00-0.10) 10^3/uL Sodium 144 (136-145) mmol/L Potassium 3.2 L (3.3-5.3) mmol/L Chloride 108 (98-115) mmol/L Carbon Dioxide 27.8 (21.0-32.0) mmol/L Anion Gap 11.4 (5-15) mmol/L BUN 21 (6-25) mg/dL Creatinine 1.24 H (0.51-1.17) mg/dL Est Cr Clr Drug Dosing 32.97 mL/min Estimated GFR (MDRD) 56 mL/min Glucose 145 H (75 - 99) mg/dL Calcium 8.9 (8.7-10.3) mg/dL Magnesium (1.8-2.4) mg/dL Total Bilirubin 0.8 (0.2-1.0) mg/dL AST 19 (15-37) U/L ALT 11 L (12-78) U/L Alkaline Phosphatase 85 (46-116) IU/L Creatine Kinase 43 (26-276) U/L CK-MB (CK-2) 1.40 (0.00-4.30) ng/mL Troponin I 0.07 (0.00-0.070) ng/mL Total Protein 5.0 L (6.4-8.2) g/dL Albumin 2.55 L (3.00-4.80) g/dL 05/24/19 Range/Units 07:10 WBC (5.00-10.00) 10^3/uL RBC (4.50-6.00) 10^6/uL Hgb (13.0-17.0) g/dL Hct (40.0-52.0) % MCV (82.0-92.0) fL MCH (27.0-31.0) pg MCHC (32.0-36.0) g/dL RDW (11.5-14.5) % Plt Count (150-400) 10^3/uL MPV (7.4-10.4) fL Immature Gran % (Auto) (0.0-5.0) % Neut % (Auto) (50.0-70.0) % Lymph % (Auto) (20.0-40.0) % Upson % (Auto) (2.0-8.0) % Eos % (Auto) (1.0-3.0) % Baso % (Auto) (0.0-1.0) % Immature Gran # (Auto) (0.00-0.50) 10^3/uL Neut # (Auto) (2.50-7.00) 10^3/uL Lymph # (Auto) (1.00-4.00) 10^3/uL [place] # (Auto) (0.10-0.80) 10^3/uL Eos # (Auto) (0.10-0.30) 10^3/uL Baso # (Auto) (0.00-0.10) 10^3/uL Sodium 144 (136-145) mmol/L Potassium 3.5 (3.3-5.3) mmol/L Chloride 108 (98-115) mmol/L Carbon Dioxide 27.1 (21.0-32.0) mmol/L Anion Gap 12.4 (5-15) mmol/L BUN 15 (6-25) mg/dL Creatinine 1.06 (0.51-1.17) mg/dL Est Cr Clr Drug Dosing 38.57 mL/min Estimated GFR (MDRD) > 60 mL/min Glucose 86 (75 - 99) mg/dL Calcium 8.6 L (8.7-10.3) mg/dL Magnesium 1.5 L (1.8-2.4) mg/dL Total Bilirubin (0.2-1.0) mg/dL AST (15-37) U/L ALT (12-78) U/L Alkaline Phosphatase (46-116) IU/L Creatine Kinase (26-276) U/L CK-MB (CK-2) (0.00-4.30) ng/mL Troponin I 0.09 H* (0.00-0.070) ng/mL Total Protein (6.4-8.2) g/dL Albumin (3.00-4.80) g/dL Med Orders - Current: Current Medications Aspirin (Ecotrin) 325 mg PO DAILY [facility] Last Admin: 05/24/19 08:40 Dose: 325 mg Atorvastatin Calcium (Lipitor) 40 mg PO BEDTIME [facility] Last Admin: 05/23/19 21:52 Dose: 40 mg Ceftriaxone Sodium (Rocephin) 1 gm IVPUSH Q24H [facility] Enoxaparin Sodium (Lovenox) 40 mg SUBCUT Q24H [facility] Escitalopram Oxalate (Lexapro) 10 mg PO DAILY [facility] Last Admin: 05/24/19 08:40 Dose: 10 mg Levothyroxine Sodium (Synthroid) 50 mcg PO ACBREAKFAST [facility] Last Admin: 05/24/19 06:33 Dose: 50 mcg Non-Formulary Medication (Enzalutamide [Xtandi]) 160 mg PO DAILY [facility] Sodium Chloride (Saline Flush) 10 ml FLUSH Q8HR PRN PRN Reason: keep vein open Discontinued Medications Sodium Chloride (Normal Saline) 1,000 mls @ 125 mls/hr IV ASDIRECTED [facility] Last Admin: 05/23/19 18:46 Dose: 125 mls/hr Sodium Chloride (Normal Saline) 1,000 mls @ 125 mls/hr IV ASDIRECTED [facility] Sodium Chloride (Normal Saline) 1,000 mls @ 125 mls/hr IV ASDIRECTED [facility] Last Admin: 05/24/19 03:12 Dose: 125 mls/hr Potassium Chloride (Klor-Con M20) 40 meq PO ONETIME ONE Stop: 05/23/19 19:57 Last Admin: 05/23/19 21:52 Dose: 20 meq Sodium Chloride (Saline Flush) 10 ml FLUSH Q8HR PRN PRN Reason: keep vein open - Exam General: Alert, Oriented, Cooperative, No Acute Distress Lungs: Clear to Auscultation, Normal Respiratory Effort Cardiovascular: Regular Rate, Regular Rhythm, No Murmurs GI/Abdominal Exam: Normal Bowel Sounds Extremities: Pedal Edema (Trace pedal edema.) - Problem List & Annotations (1) Orthostatic hypotension SNOMED Code(s): 70159679 Code(s): I95.1 - ORTHOSTATIC HYPOTENSION Status: Acute Current Visit: Yes (2) Weakness SNOMED Code(s): 09061152 Code(s): R53.1 - WEAKNESS Status: Acute Current Visit: Yes (3) Decubitus ulcer of buttock, stage 2 SNOMED Code(s): 63412756234717976 Code(s): L89.302 - PRESSURE ULCER OF UNSPECIFIED BUTTOCK, STAGE 2 Status: Acute Priority: High Current Visit: No Qualifiers: Laterality: right Qualified Code(s): L89.312 - Pressure ulcer of right buttock, stage 2 Annotation/Comment:: Bilateral superior gluteus (4) Hypothyroid SNOMED Code(s): 98359090 Code(s): E03.9 - HYPOTHYROIDISM, UNSPECIFIED Status: Acute Priority: Medium Current Visit: No Annotation/Comment:: Thyroid at this time on current dose (5) Renal failure SNOMED Code(s): 86377537 Code(s): N19 - UNSPECIFIED KIDNEY FAILURE Status: Acute Priority: High Current Visit: No Qualifiers: Renal failure chronicity: acute on chronic Chronic kidney disease stage: stage 2 (mild) Annotation/Comment:: Cautiously provide hydration due to decreased oral intake and monitor electrolytes as well as cardiovascular status (6) UTI (urinary tract infection), bacterial SNOMED Code(s): 304124902 Code(s): N39.0 - URINARY TRACT INFECTION, SITE NOT SPECIFIED; A49.9 - BACTERIAL INFECTION, UNSPECIFIED Status: Acute Current Visit: No Annotation/Comment:: Likely due to urinary retention and incontinence - Problem List Review Problem List Initiated/Reviewed/Updated: Yes - My Orders Last 24 Hours: My Active Orders 05/23/19 22:28 Consult to Case Management/[employer] [CONS] Routine 05/24/19 08:27 Consult to Physician [CONS] Urgent 05/24/19 08:29 Notify Provider Consults [RC] ASDIRECTED 05/24/19 08:30 Enoxaparin [Lovenox] 30 mg SUBCUT Q24H - Assessment Assessment:: Syncope, orthostatic, likely secondary to medication (metoprolol) which he had not been taking at home. This has been held. He was on IVF's overnight, will discontinue today. Weakness. Chronic deconditioning. PT eval and treat. Needs NH placement. Depression with suicidal ideation. Will get psych consultation. Hypothyroid. Continue levothyroxine. DVT prophylaxis, enoxaparin. Will d/c telemetry and IVF's. Keflex for the UTI. I will contact his oncologist to see what we can do about finding a more affordable option for treatment of his prostate cancer. - Plan Plan:: Syncope, orthostatic, likely secondary to medication (metoprolol) which he had not been taking at home. This has been held. He was on IVF's overnight, will discontinue today. Weakness. Chronic deconditioning. PT eval and treat. Needs NH placement. Depression with suicidal ideation. Will get psych consultation. Hypothyroid. Continue levothyroxine. DVT prophylaxis, enoxaparin. Will d/c telemetry and IVF's. Keflex for the UTI. I will contact his oncologist to see what we can do about finding a more affordable option for treatment of his prostate cancer. Very difficult disposition.
[2019-05-24] MEDS: Enoxaparin 40 MG/0.4 ML Syringe SUBCUT SCH (09:50)
[2019-05-24] MEDS ORDERED: Magnesium Sulfate/Water 2 GM in Premix Bag 1 BAG IV ONE ×2 (17:20→19:54)
[2019-05-24] MEDS ORDERED: cefTRIAXone 1 GM Vial IVPUSH SCH (20:00)
[2019-05-24] MEDS: atorvaSTATin 40 MG Tab PO SCH (20:06)
[2019-05-25] MEDS: Levothyroxine 50 MCG Tab PO SCH (07:36)
[2019-05-25 07:50] LABS: ANION GAP 10.7 mmol/L (5-15)
--- NOTE | 2019-05-25 08:48 | PCM.PN ---
- General Info Date of Service: 05/25/19 Admission Dx/Problem (Free Text): Syncope - Review of Systems Systems Review Comment:: See is seen today on inpatient rounds. He was admitted on 05/23/19 through the ER with a syncopal episode. He had possible UTI although urine micro has come back and it was mixed avinash and so his antibiotics were discontinued on . He has been eating well, denies any pain. He is weak and deconditioned and will require PT. Ideally a NH would be the place for him but he has been refusing this with talk of shooting himself if he has to go to the [place]. He had a conversation with Maddison, an e commerce merchandising coordinator from [facility] to screen him for possible admission to the [facility] but he told her that while he was saying suicidal things he is really just saying that to avoid going to the [place] as he is afraid he would go to [facility] and he does not want to leave his family. He has no concerns today. He is talking to me today about an asteroid he heard about on the news that may crash into [place] on 5 years and he wants to be alive to see this. He has an appointment on June 01, [address] Melton at [facility] , to discuss the group home goals of his prostate cancer therapy as currently he is on a very expensive medication and it is making it hard for him to be accepted for admission to the [place]. - Patient Data Vitals - Most Recent: Last Vital Signs Temp 98.4 F 05/25/19 06:51 Pulse 73 05/25/19 06:51 Resp 20 05/25/19 06:51 BP 125/79 05/25/19 06:51 Pulse Ox 97 05/25/19 06:51 Orthostatic Blood Pressure [ 80/42 Standing] Orthostatic Blood Pressure [ 88/45 Sitting] Orthostatic Blood Pressure [ 106/62 Supine] Weight - Most Recent: 110 lb I&O - Last 24 Hours: Intake & Output 05/24/19 05/25/19 05/25/19 22:59 06:59 14:59 Intake Total 350 50 Output Total 200 200 Balance 150 -150 Lab Results Last 24 Hours: Laboratory Results - last 24 hr 05/25/19 05/25/19 Range/Units 07:15 07:15 WBC 7.83 (5.00-10.00) 10^3/uL RBC 3.98 L (4.50-6.00) 10^6/uL Hgb 12.1 L (13.0-17.0) g/dL Hct 36.1 L (40.0-52.0) % MCV 90.7 (82.0-92.0) fL MCH 30.4 (27.0-31.0) pg MCHC 33.5 (32.0-36.0) g/dL RDW 14.4 (11.5-14.5) % Plt Count 198 (150-400) 10^3/uL MPV 11.1 H (7.4-10.4) fL Immature Gran % (Auto) 0.3 (0.0-5.0) % Neut % (Auto) 67.4 (50.0-70.0) % Lymph % (Auto) 18.1 L (20.0-40.0) % [place] % (Auto) 7.3 (2.0-8.0) % Eos % (Auto) 6.0 H (1.0-3.0) % Baso % (Auto) 0.9 (0.0-1.0) % Immature Gran # (Auto) 0.02 (0.00-0.50) 10^3/uL Neut # (Auto) 5.28 (2.50-7.00) 10^3/uL Lymph # (Auto) 1.42 (1.00-4.00) 10^3/uL [place] # (Auto) 0.57 (0.10-0.80) 10^3/uL Eos # (Auto) 0.47 H (0.10-0.30) 10^3/uL Baso # (Auto) 0.07 (0.00-0.10) 10^3/uL Sodium 144 (136-145) mmol/L Potassium 3.6 (3.3-5.3) mmol/L Chloride 108 (98-115) mmol/L Carbon Dioxide 28.9 (21.0-32.0) mmol/L Anion Gap 10.7 (5-15) mmol/L BUN 13 (6-25) mg/dL Creatinine 1.20 H (0.51-1.17) mg/dL Est Cr Clr Drug Dosing 34.07 mL/min Estimated GFR (MDRD) 58 mL/min Glucose 85 (75 - 99) mg/dL Calcium 8.7 (8.7-10.3) mg/dL Phosphorus 2.0 L (2.6-4.7) mg/dL Magnesium 2.0 (1.8-2.4) mg/dL Med Orders - Current: Current Medications Aspirin (Ecotrin) 325 mg PO DAILY [facility] Last Admin: 05/24/19 08:40 Dose: 325 mg Atorvastatin Calcium (Lipitor) 40 mg PO BEDTIME [facility] Last Admin: 05/24/19 20:06 Dose: 40 mg Enoxaparin Sodium (Lovenox) 40 mg SUBCUT Q24H [facility] Last Admin: 05/24/19 09:50 Dose: 40 mg Escitalopram Oxalate (Lexapro) 10 mg PO DAILY [facility] Last Admin: 05/24/19 08:40 Dose: 10 mg Levothyroxine Sodium (Synthroid) 50 mcg PO ACBREAKFAST [facility] Last Admin: 05/25/19 07:36 Dose: 50 mcg Magnesium Oxide (Magnesium Oxide) 500 mg PO DAILY [facility] Non-Formulary Medication (Enzalutamide [Xtandi]) 160 mg PO DAILY [facility] Sodium Chloride (Saline Flush) 10 ml FLUSH Q8HR PRN PRN Reason: keep vein open Discontinued Medications Ceftriaxone Sodium (Rocephin) 1 gm IVPUSH Q24H [facility] Sodium Chloride (Normal Saline) 1,000 mls @ 125 mls/hr IV ASDIRECTED [facility] Last Admin: 05/23/19 18:46 Dose: 125 mls/hr Sodium Chloride (Normal Saline) 1,000 mls @ 125 mls/hr IV ASDIRECTED [facility] Sodium Chloride (Normal Saline) 1,000 mls @ 125 mls/hr IV ASDIRECTED [facility] Last Admin: 05/24/19 03:12 Dose: 125 mls/hr Magnesium Sulfate 2 gm/ Premix 50 mls @ 150 mls/hr IV ONETIME ONE Stop: 05/24/19 17:39 Last Admin: 05/24/19 19:56 Dose: Not Given Magnesium Sulfate 2 gm/ Premix 50 mls @ 150 mls/hr IV ONETIME ONE Stop: 05/24/19 20:13 Last Admin: 05/24/19 20:10 Dose: 150 mls/hr Potassium Chloride (Klor-Con M20) 40 meq PO ONETIME ONE Stop: 05/23/19 19:57 Last Admin: 05/23/19 21:52 Dose: 20 meq Sodium Chloride (Saline Flush) 10 ml FLUSH Q8HR PRN PRN Reason: keep vein open - Exam General: Alert, Oriented, Cooperative, No Acute Distress Lungs: Clear to Auscultation, Normal Respiratory Effort Cardiovascular: Regular Rate, Regular Rhythm, No Murmurs GI/Abdominal Exam: Normal Bowel Sounds Extremities: No Pedal Edema - Problem List & Annotations (1) Orthostatic hypotension SNOMED Code(s): 86592799 Code(s): I95.1 - ORTHOSTATIC HYPOTENSION Status: Acute Current Visit: Yes (2) Weakness SNOMED Code(s): 57276231 Code(s): R53.1 - WEAKNESS Status: Acute Current Visit: Yes (3) Decubitus ulcer of buttock, stage 2 SNOMED Code(s): 38964715884161014 Code(s): L89.302 - PRESSURE ULCER OF UNSPECIFIED BUTTOCK, STAGE 2 Status: Acute Priority: High Current Visit: No Qualifiers: Laterality: right Qualified Code(s): L89.312 - Pressure ulcer of right buttock, stage 2 Annotation/Comment:: Bilateral superior gluteus (4) Hypothyroid SNOMED Code(s): 31625029 Code(s): E03.9 - HYPOTHYROIDISM, UNSPECIFIED Status: Acute Priority: Medium Current Visit: No Annotation/Comment:: Thyroid at this time on current dose (5) Renal failure SNOMED Code(s): 52975518 Code(s): N19 - UNSPECIFIED KIDNEY FAILURE Status: Acute Priority: High Current Visit: No Qualifiers: Renal failure chronicity: acute on chronic Chronic kidney disease stage: stage 2 (mild) Annotation/Comment:: Cautiously provide hydration due to decreased oral intake and monitor electrolytes as well as cardiovascular status (6) UTI (urinary tract infection), bacterial SNOMED Code(s): 613856423 Code(s): N39.0 - URINARY TRACT INFECTION, SITE NOT SPECIFIED; A49.9 - BACTERIAL INFECTION, UNSPECIFIED Status: Resolved Current Visit: No Annotation/Comment:: Likely due to urinary retention and incontinence (7) Hypomagnesemia SNOMED Code(s): 597866752 Code(s): E83.42 - HYPOMAGNESEMIA Status: Acute Current Visit: Yes (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 Weakness. Adenocarcinoma of the prostate. Malnutrition. Depression with suicidal ideation. Hypothyroid. DVT prophylaxis UTI Hypomag Hypophos - Plan Plan:: Syncope, orthostatic, likely secondary to medication (metoprolol) which he had not been taking at home. This has been held. BP and pulse are currently normal. Weakness. Chronic deconditioning. PT eval and treat. Needs NH placement. Malnutrition secondary to lack of adequate intake at home, he is eating well currently. Adenocarcinoma of the prostate. Has appt with Dr. Silva at [facility] on . Depression with suicidal ideation. Will get psych consultation with Dr. Jiang. Hypothyroid. Continue levothyroxine. DVT prophylaxis, enoxaparin. UA concerning for UTI but culture showing mixed avinash, antibiotics discontinued. Hypomag. Replaced with mag sulfate yesterday and normalized today. Oral supplementation to start today. Hypophos. Borderline low, likely related to renal disease, possibly refeeding syndrome. Will check Vit D and PTH. Very difficult disposition.
[2019-05-25] MEDS: Enoxaparin 40 MG/0.4 ML Syringe SUBCUT SCH (09:21)
[2019-05-25] MEDS: Escitalopram 10 MG Tab PO SCH (09:21)
[2019-05-25] MEDS: Aspirin 325 MG Tab.EC PO SCH (09:21)
[2019-05-25] MEDS: Magnesium Oxide 500 MG Tab PO SCH (11:25)
[2019-05-25] MEDS ORDERED: Acetaminophen 325 MG Tab PO PRN (18:34)
[2019-05-25] MEDS: atorvaSTATin 40 MG Tab PO SCH (21:09)
[2019-05-25] MEDS: Sodium Chloride 0.9% 10 ML Syringe FLUSH PRN (21:13)
[2019-05-26] MEDS: Levothyroxine 50 MCG Tab PO SCH (06:29)
[2019-05-26 08:04] LABS: ANION GAP 11.1 mmol/L (5-15)
[2019-05-26] MEDS: Enoxaparin 40 MG/0.4 ML Syringe SUBCUT SCH (08:58)
[2019-05-26] MEDS: Escitalopram 10 MG Tab PO SCH (08:58)
[2019-05-26] MEDS: Magnesium Oxide 500 MG Tab PO SCH (08:58)
[2019-05-26] MEDS: Aspirin 325 MG Tab.EC PO SCH (08:58)
[2019-05-26] MEDS: Sodium Chloride 0.9% 10 ML Syringe FLUSH PRN (20:30)
[2019-05-26] MEDS: atorvaSTATin 40 MG Tab PO SCH (20:30)
[2019-05-27 06:29] VITALS: BP 121/82; PULSE 61
[2019-05-27] MEDS: Levothyroxine 50 MCG Tab PO SCH (06:30)
[2019-05-27] MEDS: Magnesium Oxide 500 MG Tab PO SCH (08:43)
[2019-05-27] MEDS: Enoxaparin 40 MG/0.4 ML Syringe SUBCUT SCH (08:43)
[2019-05-27] MEDS: Aspirin 325 MG Tab.EC PO SCH (08:43)
[2019-05-27] MEDS: Escitalopram 10 MG Tab PO SCH (08:43)
--- NOTE | 2019-05-27 08:48 | PCM.DCSUM1 ---
Discharge Summary - Hospital Course Free Text/Narrative:: Juan is discharged from an inpatient stay 05/23/19 - 05/27/19. He is transitioning to swingbed for strengthening. He was actually admitted through the ER on 05/22/19 with slightly swollen ankles and found to have an elevated troponin in the context of a NSTEMI he declined therapy for in March of 2019 with a stay at [facility] in [place]. He had only 1 elevated troponin at 0.11 without EKG changes. He had not been taking his atorvastatin or metopolol that he was prescribed at discharged from [facility]. These were restarted. He had 2 subsequent negative troponins with no EKG changes. He had a UTI that was treated with a dose or rocephin and he was discharged on 05/23/19 to home. He had no criteria for admission and had been able to walk independently in the hospital. Of note, his family wants him admitted to the [place]. Reportedly this has been challenging because of a medication he is on for prostate cancer (Xtandi), which is expensive and apparently residential are not wanting to accept him on this medication. Also of note, Juan wants to stay at home. He lives in a home with no electricity and no running water. He has lived like this for many years. He has said repeatedly "I will kill myself if I have to go to the [place]". He states he has had thoughts of suicide for over 30 years. Currently he is on Lexapro. When he arrived home he states that he tried to get over the threshhold to his home and he felt weak and had a syncopal episode. The ambulance was called and he was returned to the ER. He was noted to be orthostatic in the ER. He was admitted due to inability to care for self. In further discussion with him, he states he has had incontinence issues for over 30 years and his son washes his clothes for him. He only eats food once per day, largely canned food such as chili or beans. He will occasionally have bread and peanut butter. He has a stove that is operated with gas and gas heats his home. He uses "buckets of rain water" to flush his toilet. He takes a bath with a washcloth with alcohol on it. He does not leave his home other than to attend medical appointments with Dr. Geeraerts, his oncologist. He states, "I'm just weak, I need about 10 days here and I'll be as good as new. " During his inpatient stay he was noted to have low magnesium and phosphorus, mag has been corrected and the phos is improving without therapy. He was thought to have a UTI but the culture grew out mixed avinash and so antibiotics were discontinued. He had a decubitus ulcer on his bilateral buttocks that were present on admission. He has CKD and has had stable renal function. He had the MOCA administered and scored an 18/30 indicating some cognitive impairment. We have not been able to classify him as vulnerable adult as he is still his own decision maker and Juan is making a choice that he wants to go back to his current living situation. rn support services is working with the family to get guardianship of Juan. Ultimately it would be ideal to place him in the NH. Admission date: 05/23/19 Discharge date: 04/26/19 Disposition: Transfer to [facility] Admission diagnoses: Syncope, orthostatic, likely secondary to medication (metoprolol) which he had not been taking at home. Weakness. Chronic deconditioning. PT eval and treat. Needs NH placement. Depression with suicidal ideation. Will get psych consultation. Hypothyroid. Continue levothyroxine. Adenocarcinoma of the prostate. Decubitus ulcer bilateral buttock. DVT prophylaxis, enoxaparin. Discharge diagnoses: Syncope, orthostatic, likely secondary to medication (metoprolol) which he had not been taking at home. This has been discontinued. While it is an important medication post [place] his BP and pulse do not tolerate a beta-suzy at this time. Weakness. Chronic deconditioning. Transfer to [facility]. Malnutrition secondary to lack of adequate intake at home, he is eating well currently. Adenocarcinoma of the prostate. Has appt with Dr. Silva at [facility] on . Decubitus ulcer bilateral buttock, present on admission. Depression with suicidal ideation. Will get psych consultation with Dr. Jiang. Hypothyroid. Continue levothyroxine. DVT prophylaxis, enoxaparin. UA concerning for UTI but culture showing mixed avinash, antibiotics discontinued. Hypomag. Replaced with mag sulfate. Oral supplementation currently. Hypophos. Borderline low, likely related to renal disease, possibly refeeding syndrome. Will check Vit D and PTH (pending). Improving without intervention Diagnosis: Stroke: No Modified Sweetwater Scale: No Signif.Disability Despite Sympt.Able to Carry Out Usual Act./Duties Modified Sweetwater Scale Score: 1 - Discharge Data Discharge Date: 05/27/19 Discharge Disposition: DC/Tfer W/I Hosp To Swing 61 Condition: Fair - Referral to Home Health Primary Care Physician: Latoya Brar MD - Discharge Diagnosis/Problem(s) (1) Orthostatic hypotension SNOMED Code(s): 56296940 ICD Code: I95.1 - ORTHOSTATIC HYPOTENSION Status: Acute Current Visit: Yes (2) Weakness SNOMED Code(s): 74087042 ICD Code: R53.1 - WEAKNESS Status: Acute Current Visit: Yes (3) Decubitus ulcer of buttock, stage 2 SNOMED Code(s): 15823210250261007 ICD Code: L89.302 - PRESSURE ULCER OF UNSPECIFIED BUTTOCK, STAGE 2 Status: Acute Priority: High Current Visit: No Problem Details: Bilateral superior gluteus Qualifiers: Laterality: right Qualified Code(s): L89.312 - Pressure ulcer of right buttock, stage 2 (4) Hypothyroid SNOMED Code(s): 05009483 ICD Code: E03.9 - HYPOTHYROIDISM, UNSPECIFIED Status: Acute Priority: Medium Current Visit: No Problem Details: Thyroid at this time on current dose (5) Renal failure SNOMED Code(s): 74314969 ICD Code: N19 - UNSPECIFIED KIDNEY FAILURE Status: Acute Priority: High Current Visit: No Problem Details: Cautiously provide hydration due to decreased oral intake and monitor electrolytes as well as cardiovascular status Qualifiers: Renal failure chronicity: acute on chronic Chronic kidney disease stage: stage 2 (mild) (6) UTI (urinary tract infection), bacterial SNOMED Code(s): 147093850 ICD Code: N39.0 - URINARY TRACT INFECTION, SITE NOT SPECIFIED; A49.9 - BACTERIAL INFECTION, UNSPECIFIED Status: Resolved Current Visit: No Problem Details: Likely due to urinary retention and incontinence (7) Hypomagnesemia SNOMED Code(s): 771051396 ICD Code: E83.42 - HYPOMAGNESEMIA Status: Acute Current Visit: Yes (8) Hypophosphatasia SNOMED Code(s): 363279195 ICD Code: E83.39 - OTHER DISORDERS OF PHOSPHORUS METABOLISM Status: Acute Current Visit: Yes - Patient Summary/Data Consults: Consultations 05/23/19 19:51 PT Evaluation and Treatment [CONS] Routine 05/23/19 22:28 Consult to Case Management/Recycling Sorter [CONS] Routine 05/24/19 08:27 Consult to Physician [CONS] Urgent - Patient Instructions Diet: Regular Diet as Tolerated - Discharge Plan *PRESCRIPTION DRUG MONITORING PROGRAM REVIEWED*: Not Applicable *COPY OF PRESCRIPTION DRUG MONITORING REPORT IN PATIENT RHYS: Not Applicable Home Medications: Home Meds Enzalutamide [Xtandi] 160 mg PO DAILY 05/22/19 [History] Escitalopram [Lexapro] 10 mg PO DAILY 05/22/19 [History] Levothyroxine [Synthroid] 50 mcg PO ACBREAKFAST 05/22/19 [History] atorvaSTATin [Lipitor] 40 mg PO BEDTIME 05/22/19 [History] Aspirin 325 mg PO DAILY 05/23/19 [History] Magnesium Oxide 500 mg PO DAILY tablet 05/27/19 [Rx] Forms: ED Department Discharge Referrals: Latoya Brar MD [Primary Care Provider] - - Discharge Summary/Plan Comment DC Time >30 min.: No - General Info Date of Service: 05/27/19 Admission Dx/Problem (Free Text: Syncope - Patient Data Vitals - Most Recent: Last Vital Signs Temp 98.2 F 05/27/19 06:28 Pulse 61 05/27/19 06:28 Resp 16 05/27/19 06:28 BP 121/82 05/27/19 06:28 Pulse Ox 95 05/27/19 06:28 Orthostatic Blood Pressure [ 80/42 Standing] Orthostatic Blood Pressure [ 88/45 Sitting] Orthostatic Blood Pressure [ 106/62 Supine] Weight - Most Recent: 115 lb 4.8 oz I&O - Last 24 hours: Intake & Output 05/26/19 05/27/19 05/27/19 22:59 06:59 14:59 Intake Total 640 0 Balance 640 0 Med Orders - Current: Current Medications Acetaminophen (Tylenol) 650 mg PO Q6H PRN PRN Reason: sinus pressure Last Admin: 05/25/19 19:25 Dose: 650 mg Aspirin (Ecotrin) 325 mg PO DAILY [facility] Last Admin: 05/26/19 08:58 Dose: 325 mg Atorvastatin Calcium (Lipitor) 40 mg PO BEDTIME [facility] Last Admin: 05/26/19 20:30 Dose: 40 mg Enoxaparin Sodium (Lovenox) 40 mg SUBCUT Q24H [facility] Last Admin: 05/26/19 08:58 Dose: 40 mg Escitalopram Oxalate (Lexapro) 10 mg PO DAILY [facility] Last Admin: 05/26/19 08:58 Dose: 10 mg Levothyroxine Sodium (Synthroid) 50 mcg PO ACBREAKFAST [facility] Last Admin: 05/27/19 06:30 Dose: 50 mcg Magnesium Oxide (Magnesium Oxide) 500 mg PO DAILY [facility] Last Admin: 05/26/19 08:58 Dose: 500 mg Non-Formulary Medication (Enzalutamide [Xtandi]) 160 mg PO DAILY [facility] Sodium Chloride (Saline Flush) 10 ml FLUSH Q8HR PRN PRN Reason: keep vein open Last Admin: 05/26/19 20:30 Dose: 10 ml Discontinued Medications Ceftriaxone Sodium (Rocephin) 1 gm IVPUSH Q24H [facility] Sodium Chloride (Normal Saline) 1,000 mls @ 125 mls/hr IV ASDIRECTED [facility] Last Admin: 05/23/19 18:46 Dose: 125 mls/hr Sodium Chloride (Normal Saline) 1,000 mls @ 125 mls/hr IV ASDIRECTED [facility] Sodium Chloride (Normal Saline) 1,000 mls @ 125 mls/hr IV ASDIRECTED [facility] Last Admin: 05/24/19 03:12 Dose: 125 mls/hr Magnesium Sulfate 2 gm/ Premix 50 mls @ 150 mls/hr IV ONETIME ONE Stop: 05/24/19 17:39 Last Admin: 05/24/19 19:56 Dose: Not Given Magnesium Sulfate 2 gm/ Premix 50 mls @ 150 mls/hr IV ONETIME ONE Stop: 05/24/19 20:13 Last Admin: 05/24/19 20:10 Dose: 150 mls/hr Potassium Chloride (Klor-Con M20) 40 meq PO ONETIME ONE Stop: 05/23/19 19:57 Last Admin: 05/23/19 21:52 Dose: 20 meq Sodium Chloride (Saline Flush) 10 ml FLUSH Q8HR PRN PRN Reason: keep vein open - Exam General: Reports: Alert, Oriented, Cooperative, No Acute Distress Lungs: Reports: Clear to Auscultation, Normal Respiratory Effort Cardiovascular: Reports: Regular Rate, Regular Rhythm, No Murmurs GI/Abdominal Exam: Normal Bowel Sounds Extremities: No Pedal Edema
[2019-05-27] MEDS: ENZALUTAMIDE 160 MG PO SCH (09:59)
--- NOTE | 2019-05-27 10:23 | PN ---
05/26/2019PATIENT NAME: ETHAN PICKARD SUBJECTIVE: This is an 83-year-old male, who was admitted through the emergency room on 05/23/2019 with a syncopal episode. The patient is quite weak and deconditioned. He will require physical therapy. He has been screened by [facility] for admission to [facility]. Apparently prior to that time, he was talking about shooting himself if there would be a consideration for longterm placement. The patient does not have any pain today. He denies any complaints of headache, visual disturbances, dysphagia, chest pain, palpitations, shortness of breath, abdominal pain, NVD, constipation, or urinary complaints. On admission, there was a possible UTI, however, the urine micro came back and it was mixed avinash. Antibiotics were discontinued on 05/24/2019. The patient does have a history of prostate cancer and is followed by Dr. Melton at [facility] in [place]. He does have an upcoming appointment with him on 06/01/2019. He is receiving a very expensive medication for treatment of his prostate cancer and this is making it difficult for him to be accepted for admission to the longterm. Apparently, the patient resides in a home without running water or electricity. Lab results from yesterday showed a sodium of 145, potassium 3.7. BUN and creatinine are 15 and 1.24, respectively. GFR is 56. Total protein and albumin are low at 4.7 and 2.30 due to his poor nutritional state. Apparently, he only eats one meal a day at home. Calcium is low at 8.6. Phosphorus is low at 2.5. ALT and AST are 10 and 9, respectively. OBJECTIVE: VITAL SIGNS: Temp is 98.4, pulse 55, respirations 16, blood pressure 122/62, O2 saturation is 96% on room air. GENERAL: His appearance is quite cachectic. SKIN: Warm and dry to touch. CARDIAC: Reveals S1, S2 to be normal. Rate and rhythm are regular. No murmur or gallop is auscultated. LUNGS: Clear without rales, wheezes, or rhonchi. ABDOMEN: Scaphoid. Bowel sounds present in all 4 quadrants. There is no pedal edema. IMPRESSION: 1. Admission for syncopal episode. He has had no further syncopal episodes during this hospitalization. 2. Deconditioning and weakness. He will be followed by Physical Therapy. Plan is for possible swing bed. 3. Prostate cancer, stable with current regimen. 4. Hypothyroidism, on replacement. 5. Depression. He is on escitalopram 10 mg daily. 6. Deep venous thrombosis prophylaxis. He is on Lovenox. 7. Hypercholesterolemia. He is taking Lipitor. 8. Hypomagnesemia. He is receiving a magnesium supplement. He is on a daily aspirin regimen. We will continue to monitor closely and follow. /[id number]/MODL
== END 2019-05-27 10:00 | disposition swing bed (61) | DRG 312 ==
LOC: KA.ED 18:15 → KA.MS 19:50 → UNDOADMIN 19:50 → KA.MS 19:51
PROVIDERS: ADMIT Physician Assistant Medical; ATTEND Internal Medicine
DX: I95.1 Orthostatic hypotension (principal); R53.1 Weakness; R55 Syncope and collapse; N18.3 Chronic kidney disease, stage 3 (moderate); N39.0 Urinary tract infection, site not specified; E46 Unspecified protein-calorie malnutrition; Z68.1 Body mass index [BMI] 19.9 or less, adult; C61 Malignant neoplasm of prostate; L89.312 Pressure ulcer of right buttock, stage 2; Z85.46 Personal history of malignant neoplasm of prostate; L89.322 Pressure ulcer of left buttock, stage 2; E03.9 Hypothyroidism, unspecified; N18.2 Chronic kidney disease, stage 2 (mild); E83.42 Hypomagnesemia; E83.39 Other disorders of phosphorus metabolism; F32.9 Major depressive disorder, single episode, unspecified; I25.10 Atherosclerotic heart disease of native coronary artery without angina pectoris; E78.00 Pure hypercholesterolemia, unspecified; I25.2 Old myocardial infarction; E86.0 Dehydration; B96.89 Other specified bacterial agents as the cause of diseases classified elsewhere; Z88.2 Allergy status to sulfonamides; Z79.890 Hormone replacement therapy; Z79.82 Long term (current) use of aspirin; Z79.899 Other long term (current) drug therapy; Z98.49 Cataract extraction status, unspecified eye; Z90.49 Acquired absence of other specified parts of digestive tract; Z87.891 Personal history of nicotine dependence
CPT/HCPCS: 36415; 70450; 71045; 80048; 80053; 82306; 82550; 82553; 83735; 83970; 84100; 84134; 84484; 85025; 93005; 96360; 97161-GP; 99223; 99285-25; A9270-GY; J1650; J3475; J7030

== ENCOUNTER 2019-05-27 08:44 | Inpatient (IN) | payer MEDICARE, MEDICAID ==
[2019-05-27] MEDS ORDERED: Sodium Chloride 0.9% 10 ML Syringe FLUSH PRN ×2 (09:06)
[2019-05-27] MEDS ORDERED: ENZALUTAMIDE 160 MG PO SCH (10:50)
[2019-05-27] MEDS: atorvaSTATin 40 MG Tab PO SCH (20:25)
[2019-05-27] MEDS: Acetaminophen 325 MG Tab PO PRN (20:33)
[2019-05-27] MEDS ORDERED: atorvaSTATin 40 MG Tab PO SCH (21:00)
[2019-05-28] MEDS: Levothyroxine 50 MCG Tab PO SCH (06:32)
[2019-05-28] MEDS ORDERED: Levothyroxine 50 MCG Tab PO SCH (07:30)
[2019-05-28] MEDS: Enoxaparin 40 MG/0.4 ML Syringe SUBCUT SCH (08:42)
[2019-05-28] MEDS: Escitalopram 10 MG Tab PO SCH (08:43)
[2019-05-28] MEDS: Aspirin 325 MG Tab.EC PO SCH (08:43)
[2019-05-28] MEDS: Magnesium Oxide 500 MG Tab PO SCH (08:43)
[2019-05-28] MEDS ORDERED: Escitalopram 10 MG Tab PO SCH (09:00)
[2019-05-28] MEDS ORDERED: Aspirin 325 MG Tab.EC PO SCH (09:00)
[2019-05-28] MEDS ORDERED: Magnesium Oxide 500 MG Tab PO SCH (09:00)
[2019-05-28] MEDS: atorvaSTATin 40 MG Tab PO SCH (20:16)
[2019-05-29] MEDS: Levothyroxine 50 MCG Tab PO SCH (06:35)
[2019-05-29] MEDS: Magnesium Oxide 500 MG Tab PO SCH (09:08)
[2019-05-29] MEDS: Escitalopram 10 MG Tab PO SCH (09:08)
[2019-05-29] MEDS: Enoxaparin 40 MG/0.4 ML Syringe SUBCUT SCH (09:09)
[2019-05-29] MEDS: Aspirin 325 MG Tab.EC PO SCH (09:09)
[2019-05-29] MEDS: atorvaSTATin 40 MG Tab PO SCH (20:21)
[2019-05-30] MEDS: Bisacodyl 5 MG Tab PO PRN (05:36)
[2019-05-30] MEDS: Levothyroxine 50 MCG Tab PO SCH (06:47)
[2019-05-30 07:52] LABS: ANION GAP 10.2 mmol/L (5-15); CHLORIDE,CL 106 mmol/L (98-115); SODIUM,NA 141 mmol/L (136-145)
[2019-05-30] MEDS: Magnesium Oxide 500 MG Tab PO SCH (09:19)
[2019-05-30] MEDS: Enoxaparin 40 MG/0.4 ML Syringe SUBCUT SCH (09:19)
[2019-05-30] MEDS: Aspirin 325 MG Tab.EC PO SCH (09:19)
[2019-05-30] MEDS: Escitalopram 10 MG Tab PO SCH (09:19)
[2019-05-30] MEDS: atorvaSTATin 40 MG Tab PO SCH (20:22)
[2019-05-31] MEDS: Levothyroxine 50 MCG Tab PO SCH (06:35)
[2019-05-31] MEDS: Magnesium Oxide 500 MG Tab PO SCH (09:52)
[2019-05-31] MEDS: Enoxaparin 40 MG/0.4 ML Syringe SUBCUT SCH (09:52)
[2019-05-31] MEDS: Escitalopram 10 MG Tab PO SCH (09:52)
[2019-05-31] MEDS: Aspirin 325 MG Tab.EC PO SCH (09:52)
[2019-05-31] MEDS: buPROPion 100 MG Tab.SR PO SCH (09:52)
[2019-05-31] MEDS: atorvaSTATin 40 MG Tab PO SCH (20:18)
[2019-06-01] MEDS: Levothyroxine 50 MCG Tab PO SCH (07:32)
[2019-06-01 08:06] LABS: ANION GAP 10.9 mmol/L (5-15)
[2019-06-01] MEDS: Enoxaparin 40 MG/0.4 ML Syringe SUBCUT SCH (08:21)
[2019-06-01] MEDS: Escitalopram 10 MG Tab PO SCH (08:21)
[2019-06-01] MEDS: Aspirin 325 MG Tab.EC PO SCH (08:21)
[2019-06-01] MEDS: buPROPion 100 MG Tab.SR PO SCH (08:22)
--- NOTE | 2019-06-01 09:00 | PCM.PN ---
- General Info Date of Service: 06/01/19 Admission Dx/Problem (Free Text): Weakness, unable to care for self at home. - Review of Systems Systems Review Comment:: Juan is seen today on swingbed rounds. He was admitted on 05/27/19 to [facility] for strengthening. He has been living in deplorable conditions at home , by choice, and has not been taking care of himself. He does not leave the house to get food and relies on what his son brings him. He had been eating round 1 can of food per day. He has gas for his stove and heat and is afraid of falling into his stove due to weakness so he really doesn't cook on the stove. He had 2 decubitus ulcers on admission due to prolonged periods of sitting at home. He has prostate cancer, he actually has an appointment with oncology outreach in [place] to determine if he will continue on his treatment of Xtandi for his cancer as this is very expensive. It is non-formulary for us and he lost his bottle he had at home and so we have not been giving this to him. He had some suicidal talk in reference to if he had to go to the [place], which is where he family would like him to go, but states he would never do that as he is afraid of going to [facility] and he also wouldn't do that to his family. He states he isn't walking much in the hospital. He has no concerns. Labs are stable. - Patient Data Vitals - Most Recent: Last Vital Signs Temp 97.3 F 06/01/19 06:48 Pulse 67 06/01/19 06:48 Resp 16 06/01/19 06:48 BP 110/74 06/01/19 06:48 Pulse Ox 95 06/01/19 06:48 Weight - Most Recent: 108 lb 8 oz I&O - Last 24 Hours: Intake & Output 05/31/19 06/01/19 06/01/19 22:59 06:59 14:59 Intake Total 820 Balance 820 Lab Results Last 24 Hours: Laboratory Results - last 24 hr 06/01/19 Range/Units 07:25 Sodium 145 (136-145) mmol/L Potassium 5.2 (3.3-5.3) mmol/L Chloride 109 (98-115) mmol/L Carbon Dioxide 30.3 (21.0-32.0) mmol/L Anion Gap 10.9 (5-15) mmol/L BUN 30 H (6-25) mg/dL Creatinine 1.29 H (0.51-1.17) mg/dL Est Cr Clr Drug Dosing 31.26 mL/min Estimated GFR (MDRD) 53 mL/min Glucose 87 (75 - 99) mg/dL Calcium 9.1 (8.7-10.3) mg/dL Total Bilirubin 0.8 (0.2-1.0) mg/dL AST 24 (15-37) U/L ALT 24 (12-78) U/L Alkaline Phosphatase 66 (46-116) IU/L Total Protein 5.5 L (6.4-8.2) g/dL Albumin 2.94 L (3.00-4.80) g/dL Med Orders - Current: Current Medications Acetaminophen (Tylenol) 650 mg PO Q6H PRN PRN Reason: sinus pressure Last Admin: 05/27/19 20:33 Dose: 650 mg Aspirin (Ecotrin) 325 mg PO DAILY [facility] Last Admin: 06/01/19 08:21 Dose: 325 mg Atorvastatin Calcium (Lipitor) 40 mg PO BEDTIME [facility] Last Admin: 05/31/19 20:18 Dose: 40 mg Bisacodyl (Dulcolax) 5 - 10 mg PO ASDIRECTED PRN PRN Reason: Constipation Last Admin: 05/30/19 05:36 Dose: 5 mg Bupropion HCl (Wellbutrin Sr) 100 mg PO DAILY [facility] Last Admin: 06/01/19 08:22 Dose: 100 mg Enoxaparin Sodium (Lovenox) 40 mg SUBCUT Q24H [facility] Last Admin: 06/01/19 08:21 Dose: 40 mg Escitalopram Oxalate (Lexapro) 10 mg PO DAILY [facility] Last Admin: 06/01/19 08:21 Dose: 10 mg Levothyroxine Sodium (Synthroid) 50 mcg PO ACBREAKFAST [facility] Last Admin: 06/01/19 07:32 Dose: 50 mcg Magnesium Oxide (Magnesium Oxide) 500 mg PO DAILY [facility] Last Admin: 06/01/19 08:21 Dose: 500 mg Non-Formulary Medication (Enzalutamide [Xtandi]) 160 mg PO DAILY [facility] Discontinued Medications Aspirin (Ecotrin) 325 mg PO DAILY [facility] Atorvastatin Calcium (Lipitor) 40 mg PO BEDTIME [facility] Escitalopram Oxalate (Lexapro) 10 mg PO DAILY [facility] Levothyroxine Sodium (Synthroid) 50 mcg PO ACBREAKFAST [facility] Magnesium Oxide (Magnesium Oxide) 500 mg PO DAILY [facility] Sodium Chloride (Saline Flush) 10 ml FLUSH Q8HR PRN PRN Reason: keep vein open - Exam General: Alert, Oriented, Cooperative, No Acute Distress Lungs: Clear to Auscultation, Normal Respiratory Effort Cardiovascular: Regular Rate, Regular Rhythm, No Murmurs GI/Abdominal Exam: Normal Bowel Sounds Extremities: No Pedal Edema - Problem List & Annotations (1) Prostate cancer SNOMED Code(s): 278372114 Code(s): C61 - MALIGNANT NEOPLASM OF PROSTATE Status: Acute Current Visit : Yes (2) CKD (chronic kidney disease) SNOMED Code(s): 260186156 Code(s): N18.9 - CHRONIC KIDNEY DISEASE, UNSPECIFIED Status: Acute Current Visit: Yes (3) Decubitus ulcer of buttock, stage 2 SNOMED Code(s): 93908231960602754 Code(s): L89.302 - PRESSURE ULCER OF UNSPECIFIED BUTTOCK, STAGE 2 Status: Acute Priority: High Current Visit: No Qualifiers: Annotation/Comment:: Bilateral superior gluteus (4) Hypothyroid SNOMED Code(s): 98455598 Code(s): E03.9 - HYPOTHYROIDISM, UNSPECIFIED Status: Acute Priority: Medium Current Visit: No Annotation/Comment:: Thyroid at this time on current dose (5) Palliative care patient SNOMED Code(s): 915029998 Code(s): Z51.5 - ENCOUNTER FOR PALLIATIVE CARE Status: Acute Current Visit: No (6) Weakness SNOMED Code(s): 53602853 Code(s): R53.1 - WEAKNESS Status: Acute Current Visit: No - Problem List Review Problem List Initiated/Reviewed/Updated: Yes - My Orders Last 24 Hours: My Active Orders 05/31/19 11:58 Weight [Height and Weight] [RC] 0700 - Assessment Assessment:: Weakness Inability to care for self Prostate cancer Hypothyroidism Hx of NSTEMI - Plan Plan:: Weakness. Continue with PT. Inability to care for self. Looking into placement at the [place]. Prostate cancer. Meets with Dr. Melton today at [facility] to discuss his plan for therapy. Hypothyroidism. Continue levothyroxine. Hx of NSTEMI. Unable to tolerate beta suzy due to hypotension and low pulse. No further treatment.
[2019-06-01] MEDS: Magnesium Oxide 500 MG Tab PO SCH (09:20)
--- NOTE | 2019-06-01 10:45 | CONS ---
DATE OF CONSULTATION: 05/30/2019 CONSULTING PHYSICIAN: Jarvis Jiang MD REQUESTING PHYSICIAN: Latoya Sneed MD 60-MINUTE INPATIENT CLINICAL EVENT Site where the services are provided is [facility] in [place], [place]. Site where the services are provided from our office is in [facility]. Length of service for this 60-minute inpatient telemedicine event is 60 minutes. IDENTIFYING DATA: The patient is an 83-year-old male who was admitted to the Inpatient Med/Surg Unit at [facility] in [place], [place] on 05/23/2019. He is seen for psychiatric consultation per the request of staff attending, Dr. Latoya Meyer and her treatment team. Nursing staff are present during the course of the interview. CHIEF COMPLAINT: "I was rundown." HISTORY OF PRESENT ILLNESS: The patient is an 83-year-old male who was admitted for weakness and dehydration on 05/23/2019. In fact, staff is reporting that the patient had been previously admitted to the inpatient unit at [facility], then had been attempted to be discharged either the day before or that day of the subsequent admission and the patient was unable to care of himself once he got back to his place of residence which is in [place], [place]. He had to be brought back and readmitted. Evidently, the patient had been treated for dehydration prior to the first admission and again has been deemed treated for dehydration and generalized weakness. The patient himself is noted that he has been "just feeling down" for quite some time. Not only from a physical standpoint, but also from a mental health standpoint. The patient states he has been depressed, he has had lack appetite. Prior to admission since this most recent admission, staff is reporting that his appetite has been better. He has actually been getting physically stronger. The patient states that he is having some possible suicidal ideation without plan or intent. He states that things get worse for him as the seasons change and going to the winter time. He states "I just hate the cold." He states that he has not been having much problems with his memory only "from time to time," but he is only alert and oriented x2 to person and place, not to day or month. He does know his date of , however. The patient is on Lexapro 10 mg q.a.m. since 05/21/2019, but staff is not feeling that this medication has been particularly helpful thus far in the patient's course of admission. Does not appear that there is any illicit substance use or excessive alcohol complicating the clinical picture at this point in time. The patient is denying any homicidal ideation or any psychotic, delusional, or paranoid symptoms. PAST MEDICAL HISTORY: 1. Per staff report, the patient had an KS earlier in the summer. 2. The patient has a history of prostate cancer. MEDICATIONS: Psychiatric medications at the time of admission, Lexapro 10 mg q.a.m. ALLERGIES: The patient is allergic to sulfa. SOCIAL/PERSONAL HISTORY: The patient born and raised in [place], [place]. He is a platt by profession. He was , but is now. He had 2 children from the marriage. He states he has contact with the children. He currently lives in [place], [place] by himself and he states that is about 30 miles outside of [facility]. He is raised [facility] in terms of his jose formation. MENTAL STATUS EXAMINATION: The patient is an 83-year-old frail appearing white male, in no apparent distress. Speech is significant for increase latency of response, but regular rate and rhythm. Psychomotor activities within normal limits. There is no abnormal motor movements or tics observed. Gait and station are observed as the patient is lying in the bed during the consult. The patient is cognitively oriented x2 to person and place, but not to day or month. Mood is depressed. Affect is consistent with state of mood restricted, but cooperative overall for the purposes of the inpatient consult. There is no behavioral or stated evidence of acute suicidal or homicidal ideation; however, the patient is endorsing occasional suicidal ideation without plan or intent, and he is contracted for safety while on the unit. There is no acute psychotic, delusional, or paranoid symptoms. Thought processes appear significant for some deficits with cognition. There are no manic symptoms or loose associations evident. Judgement and insight do appear impaired secondary to a possible pseudodementia or dementia-like process. Motivation for help appear fair to good. REVIEW OF SYSTEMS: Aside from cardiovascular and genitourinary, all other major organ system are negative at this point in time for acute difficulties or complications. FAMILY PSYCHIATRIC AND CDU HISTORY: None reported. PAST PSYCHIATRIC AND CDU HISTORY: None reported. PHYSICAL EXAMINATION: VITAL SIGNS: 110 pounds. 125/79, 76, 20, 36.9 degrees. IMPRESSION: [place] I: 1. Major depressive disorder, F32.2. 2. 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 [place] II: None. [place] III: 1. Status post myocardial infarction over the summer. 2. History of prostate cancer. [place] IV: Severe. [place] V: 50. PLAN: 1. Recommend beginning trial of Wellbutrin SR 100 mg q.a.m. to help with symptoms of depression as well as to help improve clarity of thought. 2. Continue Lexapro 10 mg q.a.m. also for symptoms with depression. 3. Other medications as those prescribed by the patient's primary inpatient medical treatment team. 4. At this point in time, would recommend the patient be place in a structured living condition if he is medically stabilized and ready for discharge as he does not appear capable of living on his own at the moment. If the patient responds appropriately through the antidepressant medications and his cognitive status improves with the psychiatric treatment and medical treatment, then would re-explore the possibility and the patient to go back to live at his own, but at this time it is appropriate to have the patient placed in a structured living situation for his safety going forward. 5. We will continue to follow up with the patient on an as-needed basis while he remains on the Inpatient Med/Surg Unit at [facility] in [place], [place]. 6. We will follow up with the patient sooner if there are any complications in the interim. 7. Crisis plan is in place. /[id number]/MODL
[2019-06-01] MEDS: Acetaminophen 325 MG Tab PO PRN (19:57)
[2019-06-01] MEDS: atorvaSTATin 40 MG Tab PO SCH ×2 (19:58→20:22)
[2019-06-02] MEDS: Levothyroxine 50 MCG Tab PO SCH (07:23)
[2019-06-02] MEDS: Aspirin 325 MG Tab.EC PO SCH (08:41)
[2019-06-02] MEDS: Escitalopram 10 MG Tab PO SCH (08:41)
[2019-06-02] MEDS: Enoxaparin 40 MG/0.4 ML Syringe SUBCUT SCH (08:41)
[2019-06-02] MEDS: buPROPion 100 MG Tab.SR PO SCH (08:43)
[2019-06-02] MEDS: Magnesium Oxide 500 MG Tab PO SCH (09:35)
[2019-06-02] MEDS: Acetaminophen 325 MG Tab PO PRN (20:09)
[2019-06-02] MEDS: atorvaSTATin 40 MG Tab PO SCH (20:09)
[2019-06-03] MEDS: Bisacodyl 5 MG Tab PO PRN (06:27)
[2019-06-03] MEDS: Levothyroxine 50 MCG Tab PO SCH (07:55)
[2019-06-03] MEDS: Enoxaparin 40 MG/0.4 ML Syringe SUBCUT SCH (09:49)
[2019-06-03] MEDS: buPROPion 100 MG Tab.SR PO SCH (09:49)
[2019-06-03] MEDS: Magnesium Oxide 500 MG Tab PO SCH (09:49)
[2019-06-03] MEDS: Escitalopram 10 MG Tab PO SCH (09:50)
[2019-06-03] MEDS: Aspirin 325 MG Tab.EC PO SCH (09:50)
[2019-06-03] MEDS: atorvaSTATin 40 MG Tab PO SCH (21:10)
[2019-06-04] MEDS: Levothyroxine 50 MCG Tab PO SCH (06:34)
[2019-06-04] MEDS: Aspirin 325 MG Tab.EC PO SCH (08:20)
[2019-06-04] MEDS: buPROPion 100 MG Tab.SR PO SCH (08:20)
[2019-06-04] MEDS: Escitalopram 10 MG Tab PO SCH (08:20)
[2019-06-04] MEDS: Enoxaparin 40 MG/0.4 ML Syringe SUBCUT SCH (08:21)
[2019-06-04] MEDS: Magnesium Oxide 500 MG Tab PO SCH (13:15)
[2019-06-04] MEDS: atorvaSTATin 40 MG Tab PO SCH (20:42)
[2019-06-05] MEDS: Levothyroxine 50 MCG Tab PO SCH (06:41)
[2019-06-05] MEDS: Enoxaparin 40 MG/0.4 ML Syringe SUBCUT SCH (08:51)
[2019-06-05] MEDS: buPROPion 100 MG Tab.SR PO SCH (08:51)
[2019-06-05] MEDS: Aspirin 325 MG Tab.EC PO SCH (08:51)
[2019-06-05] MEDS: Escitalopram 10 MG Tab PO SCH (08:51)
[2019-06-05] MEDS: Magnesium Oxide 500 MG Tab PO SCH (11:32)
[2019-06-05] MEDS: atorvaSTATin 40 MG Tab PO SCH (20:29)
[2019-06-06] MEDS: Levothyroxine 50 MCG Tab PO SCH (06:29)
[2019-06-06] MEDS: Enoxaparin 40 MG/0.4 ML Syringe SUBCUT SCH (10:19)
[2019-06-06] MEDS: Escitalopram 10 MG Tab PO SCH (10:20)
[2019-06-06] MEDS: buPROPion 100 MG Tab.SR PO SCH (10:20)
[2019-06-06] MEDS: Aspirin 325 MG Tab.EC PO SCH (10:20)
[2019-06-06] MEDS: Magnesium Oxide 500 MG Tab PO SCH (12:10)
[2019-06-06] MEDS: atorvaSTATin 40 MG Tab PO SCH (20:27)
[2019-06-07] MEDS: Levothyroxine 50 MCG Tab PO SCH (06:32)
[2019-06-07] MEDS: Bisacodyl 5 MG Tab PO PRN (06:32)
[2019-06-07] MEDS: buPROPion 100 MG Tab.SR PO SCH (08:25)
[2019-06-07] MEDS: Aspirin 325 MG Tab.EC PO SCH (08:25)
[2019-06-07] MEDS: Enoxaparin 40 MG/0.4 ML Syringe SUBCUT SCH (08:25)
[2019-06-07] MEDS: Escitalopram 10 MG Tab PO SCH (08:25)
[2019-06-07] MEDS: Magnesium Oxide 500 MG Tab PO SCH (11:34)
[2019-06-07] MEDS: atorvaSTATin 40 MG Tab PO SCH (21:03)
[2019-06-08] MEDS: Levothyroxine 50 MCG Tab PO SCH (06:29)
[2019-06-08] MEDS: buPROPion 100 MG Tab.SR PO SCH (08:29)
[2019-06-08] MEDS: Aspirin 325 MG Tab.EC PO SCH (08:29)
[2019-06-08] MEDS: Escitalopram 10 MG Tab PO SCH (08:30)
[2019-06-08] MEDS: Enoxaparin 40 MG/0.4 ML Syringe SUBCUT SCH (08:30)
--- NOTE | 2019-06-08 09:22 | PCM.PN ---
- General Info Date of Service: 06/08/19 Admission Dx/Problem (Free Text): Weakness, unable to care for self at home. - Review of Systems Systems Review Comment:: See is seen today on swingbed rounds. He voices no concerns. There is a family care conference scheduled for later today to discuss disposition planning for him. He has agreed to a more supervised setting but the 2 places he would like to go are currently full. His appetite has been good. He denies any pain. - Patient Data Vitals - Most Recent: Last Vital Signs Temp 97.6 F 06/08/19 06:26 Pulse 59 L 06/08/19 06:26 Resp 18 06/08/19 06:26 BP 113/60 06/08/19 06:26 Pulse Ox 98 06/08/19 06:26 Weight - Most Recent: 109 lb 4 oz I&O - Last 24 Hours: Intake & Output 06/07/19 06/08/19 06/08/19 22:59 06:59 14:59 Intake Total 570 320 Balance 570 320 Med Orders - Current: Current Medications Acetaminophen (Tylenol) 650 mg PO Q6H PRN PRN Reason: sinus pressure Last Admin: 06/02/19 20:09 Dose: 650 mg Aspirin (Ecotrin) 325 mg PO DAILY [facility] Last Admin: 06/08/19 08:29 Dose: 325 mg Atorvastatin Calcium (Lipitor) 40 mg PO BEDTIME [facility] Last Admin: 06/07/19 21:03 Dose: 40 mg Bisacodyl (Dulcolax) 5 - 10 mg PO ASDIRECTED PRN PRN Reason: Constipation Last Admin: 06/07/19 06:32 Dose: 5 mg Bupropion HCl (Wellbutrin Sr) 100 mg PO DAILY [facility] Last Admin: 06/08/19 08:29 Dose: 100 mg Enoxaparin Sodium (Lovenox) 40 mg SUBCUT Q24H [facility] Last Admin: 06/08/19 08:30 Dose: 40 mg Escitalopram Oxalate (Lexapro) 10 mg PO DAILY [facility] Last Admin: 06/08/19 08:30 Dose: 10 mg Levothyroxine Sodium (Synthroid) 50 mcg PO ACBREAKFAST [facility] Last Admin: 06/08/19 06:29 Dose: 50 mcg Magnesium Oxide (Magnesium Oxide) 500 mg PO 1200 [facility] Last Admin: 06/07/19 11:34 Dose: 500 mg Non-Formulary Medication (Enzalutamide [Xtandi]) 160 mg PO DAILY [facility] Discontinued Medications Aspirin (Ecotrin) 325 mg PO DAILY [facility] Atorvastatin Calcium (Lipitor) 40 mg PO BEDTIME [facility] Escitalopram Oxalate (Lexapro) 10 mg PO DAILY [facility] Levothyroxine Sodium (Synthroid) 50 mcg PO ACBREAKFAST [facility] Magnesium Oxide (Magnesium Oxide) 500 mg PO DAILY [facility] Last Admin: 06/03/19 09:49 Dose: 500 mg Magnesium Oxide (Magnesium Oxide) 500 mg PO DAILY [facility] Sodium Chloride (Saline Flush) 10 ml FLUSH Q8HR PRN PRN Reason: keep vein open - Exam General: Alert, Oriented, Cooperative, No Acute Distress Lungs: Clear to Auscultation, Normal Respiratory Effort Cardiovascular: Regular Rate, Regular Rhythm, No Murmurs - Problem List & Annotations (1) Prostate cancer SNOMED Code(s): 173748217 Code(s): C61 - MALIGNANT NEOPLASM OF PROSTATE Status: Acute Current Visit : Yes (2) CKD (chronic kidney disease) SNOMED Code(s): 768723268 Code(s): N18.9 - CHRONIC KIDNEY DISEASE, UNSPECIFIED Status: Acute Current Visit: Yes (3) Decubitus ulcer of buttock, stage 2 SNOMED Code(s): 28189190234694407 Code(s): L89.302 - PRESSURE ULCER OF UNSPECIFIED BUTTOCK, STAGE 2 Status: Acute Priority: High Current Visit: No Qualifiers: Annotation/Comment:: Bilateral superior gluteus (4) Hypothyroid SNOMED Code(s): 88880770 Code(s): E03.9 - HYPOTHYROIDISM, UNSPECIFIED Status: Acute Priority: Medium Current Visit: No Annotation/Comment:: Thyroid at this time on current dose (5) Palliative care patient SNOMED Code(s): 180617559 Code(s): Z51.5 - ENCOUNTER FOR PALLIATIVE CARE Status: Acute Current Visit: No (6) Weakness SNOMED Code(s): 73583872 Code(s): R53.1 - WEAKNESS Status: Acute Current Visit: No - Problem List Review Problem List Initiated/Reviewed/Updated: Yes - Assessment Assessment:: Weakness Inability to care for self Prostate cancer Hypothyroidism Hx of NSTEMI - Plan Plan:: Weakness. Continue with PT. Inability to care for self. Looking into placement at the [place]. Prostate cancer. He met with Dr. Melton on June 01 and has decided to forgot prostate cancer treatment. Hypothyroidism. Continue levothyroxine. Hx of NSTEMI. Unable to tolerate beta suzy due to hypotension and low pulse. No further treatment.
[2019-06-08] MEDS: Magnesium Oxide 500 MG Tab PO SCH (11:49)
[2019-06-08] MEDS: atorvaSTATin 40 MG Tab PO SCH (20:56)
[2019-06-09] MEDS: Levothyroxine 50 MCG Tab PO SCH (06:40)
[2019-06-09] MEDS: Enoxaparin 40 MG/0.4 ML Syringe SUBCUT SCH (08:29)
[2019-06-09] MEDS: Aspirin 325 MG Tab.EC PO SCH (08:29)
[2019-06-09] MEDS: buPROPion 100 MG Tab.SR PO SCH (08:29)
[2019-06-09] MEDS: Escitalopram 10 MG Tab PO SCH (08:29)
[2019-06-09] MEDS: Magnesium Oxide 500 MG Tab PO SCH (11:51)
[2019-06-09] MEDS: atorvaSTATin 40 MG Tab PO SCH (21:13)
[2019-06-10] MEDS: Levothyroxine 50 MCG Tab PO SCH (07:36)
[2019-06-10] MEDS: Aspirin 325 MG Tab.EC PO SCH (09:19)
[2019-06-10] MEDS: buPROPion 100 MG Tab.SR PO SCH (09:19)
[2019-06-10] MEDS: Enoxaparin 40 MG/0.4 ML Syringe SUBCUT SCH (09:19)
[2019-06-10] MEDS: Escitalopram 10 MG Tab PO SCH (09:19)
[2019-06-10] MEDS: Magnesium Oxide 500 MG Tab PO SCH (13:31)
[2019-06-10] MEDS: atorvaSTATin 40 MG Tab PO SCH (20:53)
[2019-06-11] MEDS: Levothyroxine 50 MCG Tab PO SCH (06:54)
[2019-06-11] MEDS: Escitalopram 10 MG Tab PO SCH (08:28)
[2019-06-11] MEDS: buPROPion 100 MG Tab.SR PO SCH (08:28)
[2019-06-11] MEDS: Enoxaparin 40 MG/0.4 ML Syringe SUBCUT SCH (08:28)
[2019-06-11] MEDS: Aspirin 325 MG Tab.EC PO SCH (08:28)
[2019-06-11] MEDS: Magnesium Oxide 500 MG Tab PO SCH (11:48)
[2019-06-11] MEDS: atorvaSTATin 40 MG Tab PO SCH (20:47)
[2019-06-12] MEDS: Levothyroxine 50 MCG Tab PO SCH (06:50)
[2019-06-12] MEDS: Enoxaparin 40 MG/0.4 ML Syringe SUBCUT SCH (09:20)
[2019-06-12] MEDS: Escitalopram 10 MG Tab PO SCH (09:21)
[2019-06-12] MEDS: Aspirin 325 MG Tab.EC PO SCH (09:21)
[2019-06-12] MEDS: buPROPion 100 MG Tab.SR PO SCH (09:21)
[2019-06-12] MEDS: Magnesium Oxide 500 MG Tab PO SCH (12:57)
[2019-06-12] MEDS: atorvaSTATin 40 MG Tab PO SCH (20:57)
[2019-06-13] MEDS: Levothyroxine 50 MCG Tab PO SCH (06:55)
[2019-06-13] MEDS: Enoxaparin 40 MG/0.4 ML Syringe SUBCUT SCH (08:15)
[2019-06-13] MEDS: Aspirin 325 MG Tab.EC PO SCH (08:16)
[2019-06-13] MEDS: Escitalopram 10 MG Tab PO SCH (08:16)
[2019-06-13] MEDS: buPROPion 100 MG Tab.SR PO SCH (08:16)
[2019-06-13] MEDS: Magnesium Oxide 500 MG Tab PO SCH (11:37)
[2019-06-13] MEDS: atorvaSTATin 40 MG Tab PO SCH (21:35)
[2019-06-14] MEDS: Levothyroxine 50 MCG Tab PO SCH (06:36)
[2019-06-14] MEDS: Enoxaparin 40 MG/0.4 ML Syringe SUBCUT SCH (08:48)
[2019-06-14] MEDS: Aspirin 325 MG Tab.EC PO SCH (08:49)
[2019-06-14] MEDS: buPROPion 100 MG Tab.SR PO SCH (08:49)
[2019-06-14] MEDS: Escitalopram 10 MG Tab PO SCH (08:49)
[2019-06-14] MEDS: Magnesium Oxide 500 MG Tab PO SCH (12:57)
[2019-06-14] MEDS: atorvaSTATin 40 MG Tab PO SCH (20:11)
[2019-06-15] MEDS: Levothyroxine 50 MCG Tab PO SCH (06:33)
[2019-06-15] MEDS: buPROPion 100 MG Tab.SR PO SCH (08:03)
[2019-06-15] MEDS: Escitalopram 10 MG Tab PO SCH (08:03)
[2019-06-15] MEDS: Aspirin 325 MG Tab.EC PO SCH (08:03)
[2019-06-15] MEDS: Enoxaparin 40 MG/0.4 ML Syringe SUBCUT SCH (08:03)
--- NOTE | 2019-06-15 08:43 | PCM.PN ---
- General Info Date of Service: 06/15/19 Admission Dx/Problem (Free Text): Weakness, unable to care for self at home. - Review of Systems Systems Review Comment:: Juan is seen today on swingbed rounds. He is awaiting placement in the NH due to weakness and deconditioning. He has no complaints. I received notification from the nurses that on his bilateral lower extremities he had linear excoriations and Juan states he gets this "from time to time because I itch my legs but it goes away". The nurse did put lotion on his legs. He denies that they itch currently. No other concerns. - Patient Data Vitals - Most Recent: Last Vital Signs Temp 97.6 F 06/15/19 06:03 Pulse 81 06/15/19 06:03 Resp 18 06/15/19 06:03 BP 93/57 L 06/15/19 06:03 Pulse Ox 96 06/15/19 06:03 Weight - Most Recent: 108 lb 3.2 oz I&O - Last 24 Hours: Intake & Output 06/14/19 06/15/19 06/15/19 22:59 06:59 14:59 Intake Total 350 50 Output Total 500 Balance 350 -450 Med Orders - Current: Current Medications Acetaminophen (Tylenol) 650 mg PO Q6H PRN PRN Reason: sinus pressure Last Admin: 06/02/19 20:09 Dose: 650 mg Aspirin (Ecotrin) 325 mg PO DAILY [facility] Last Admin: 06/15/19 08:03 Dose: 325 mg Atorvastatin Calcium (Lipitor) 40 mg PO BEDTIME [facility] Last Admin: 06/14/19 20:11 Dose: 40 mg Bisacodyl (Dulcolax) 5 - 10 mg PO ASDIRECTED PRN PRN Reason: Constipation Last Admin: 06/07/19 06:32 Dose: 5 mg Bupropion HCl (Wellbutrin Sr) 100 mg PO DAILY [facility] Last Admin: 06/15/19 08:03 Dose: 100 mg Enoxaparin Sodium (Lovenox) 40 mg SUBCUT Q24H [facility] Last Admin: 06/15/19 08:03 Dose: 40 mg Escitalopram Oxalate (Lexapro) 10 mg PO DAILY [facility] Last Admin: 06/15/19 08:03 Dose: 10 mg Levothyroxine Sodium (Synthroid) 50 mcg PO ACBREAKFAST [facility] Last Admin: 06/15/19 06:33 Dose: 50 mcg Magnesium Oxide (Magnesium Oxide) 500 mg PO 1200 [facility] Last Admin: 06/14/19 12:57 Dose: 500 mg Non-Formulary Medication (Enzalutamide [Xtandi]) 160 mg PO DAILY [facility] Discontinued Medications Aspirin (Ecotrin) 325 mg PO DAILY [facility] Atorvastatin Calcium (Lipitor) 40 mg PO BEDTIME [facility] Escitalopram Oxalate (Lexapro) 10 mg PO DAILY [facility] Levothyroxine Sodium (Synthroid) 50 mcg PO ACBREAKFAST [facility] Magnesium Oxide (Magnesium Oxide) 500 mg PO DAILY [facility] Last Admin: 06/03/19 09:49 Dose: 500 mg Magnesium Oxide (Magnesium Oxide) 500 mg PO DAILY [facility] Sodium Chloride (Saline Flush) 10 ml FLUSH Q8HR PRN PRN Reason: keep vein open - Exam General: Alert, Oriented, Cooperative, No Acute Distress Lungs: Clear to Auscultation, Normal Respiratory Effort Cardiovascular: Regular Rate, Regular Rhythm, No Murmurs Skin: Other (He has linear excoriations to his bilateral lower extremities to just above the level of the knee. No evidence of cellulitis.) - Problem List & Annotations (1) Prostate cancer SNOMED Code(s): 027614188 Code(s): C61 - MALIGNANT NEOPLASM OF PROSTATE Status: Acute Current Visit : Yes (2) CKD (chronic kidney disease) SNOMED Code(s): 500434727 Code(s): N18.9 - CHRONIC KIDNEY DISEASE, UNSPECIFIED Status: Acute Current Visit: Yes (3) Decubitus ulcer of buttock, stage 2 SNOMED Code(s): 72307670015894468 Code(s): L89.302 - PRESSURE ULCER OF UNSPECIFIED BUTTOCK, STAGE 2 Status: Acute Priority: High Current Visit: No Qualifiers: Annotation/Comment:: Bilateral superior gluteus (4) Hypothyroid SNOMED Code(s): 55359684 Code(s): E03.9 - HYPOTHYROIDISM, UNSPECIFIED Status: Acute Priority: Medium Current Visit: No Annotation/Comment:: Thyroid at this time on current dose (5) Palliative care patient SNOMED Code(s): 862297024 Code(s): Z51.5 - ENCOUNTER FOR PALLIATIVE CARE Status: Acute Current Visit: No (6) Weakness SNOMED Code(s): 18274946 Code(s): R53.1 - WEAKNESS Status: Acute Current Visit: No - Problem List Review Problem List Initiated/Reviewed/Updated: Yes - Assessment Assessment:: Weakness Inability to care for self Prostate cancer Hypothyroidism Hx of NSTEMI - Plan Plan:: Weakness. Continue with PT. Inability to care for self. Looking into placement at the [facility]. Prostate cancer. He met with Dr. Melton on June 01 and has decided to forgot prostate cancer treatment. Hypothyroidism. Continue levothyroxine. Hx of NSTEMI. Unable to tolerate beta suzy due to hypotension and low pulse. No further treatment.
[2019-06-15] MEDS: Magnesium Oxide 500 MG Tab PO SCH (12:09)
[2019-06-15] MEDS ORDERED: Sodium Chloride 0.9% 10 ML Syringe FLUSH PRN (13:36)
[2019-06-15 13:37] VITALS: BP 76/48; PULSE 63
[2019-06-15] MEDS ORDERED: Sodium Chloride 0.9% 1,000 ML IV SCH (13:45)
[2019-06-15 13:59] LABS: ANION GAP 17.2 mmol/L (5-15)
--- NOTE | 2019-06-15 14:55 | PCM.DCSUM1 ---
Discharge Summary - Hospital Course Free Text/Narrative:: Juan is being discharged to a high level of care facility on 06/15/19 due to bleeding from a urinary catheter as well as as passing blood and clots around the catheter tubing. He was admitted on 05/27/19 to [facility] for strengthening. He has been living in deplorable conditions at home, by choice, and has not been taking care of himself. He does not leave the house to get food and relies on what his son brings him. He had been eating round 1 can of food per day. He has gas for his stove and heat and is afraid of falling into his stove due to weakness so he really doesn't cook on the stove. He had 2 decubitus ulcers on admission due to prolonged periods of sitting at home. He has prostate cancer that was unresponsive to Lupron and he had been on Xtandi. He met with his oncologist on 06/01/19 and no longer wanted to be treated for his prostate cancer. He had some suicidal talk in reference to if he had to go to the [place], which is where he family would like him to go, but states he would never do that as he is afraid of going to [place] and he also wouldn't do that to his family. He admitted that these were idle threats. He had a psychiatry consultation with Dr. Jarvis Jiang and he deemed him not a danger to himself or others and recommended he add Wellbutrin to his escitalopram, which has been done. He had a relatively uneventful course in the hospital and has been awaiting NH placement and then on 06/06/19 he had to urinate several times over a short period of time, was passing blood and clots and he was bladder scanned for 800 cc of residual urine. A christie catheter was attempted to be placed but he required a [place] tip due to resistance. He has been passing gladis blood and clots not only in the bag but also around the catheter tubing. Hemoglobin was 11.5 on 05/30/19 and was 10.7 currently but he was feeling very weak and appeared ashen. Vital signs showed a BP of 76/48 when yesterday morning it had been 120/64. He is not currently on any antihypertensive medications. IVF's were started, NS at 125 an hour and he will receive a bolus of NS en route to the [facility]. I spoke to Dr. Huston, urology as well as Dr. Randhawa, hospitalist, and he was accepted to the hospitalist service for urology consultation and further treatment. He is stable at the time of transfer. Diagnosis: Stroke: No Modified [place] Scale: Slight Disable;Unable to Carry Out Prev Act.Able to Look After Affairs Modified [place] Scale Score: 2 - Discharge Data Discharge Date: 06/15/19 Discharge Disposition: DC/Tfer to [facility] Condition: Fair - Referral to Home Health Primary Care Physician: Latoya Brar MD - Discharge Diagnosis/Problem(s) (1) Prostate cancer SNOMED Code(s): 819026902 ICD Code: C61 - MALIGNANT NEOPLASM OF PROSTATE Status: Acute Current Visit: Yes (2) CKD (chronic kidney disease) SNOMED Code(s): 489422735 ICD Code: N18.9 - CHRONIC KIDNEY DISEASE, UNSPECIFIED Status: Acute Current Visit: Yes (3) Decubitus ulcer of buttock, stage 2 SNOMED Code(s): 37874328301961675 ICD Code: L89.302 - PRESSURE ULCER OF UNSPECIFIED BUTTOCK, STAGE 2 Status: Acute Priority: High Current Visit: No Problem Details: Bilateral superior gluteus Qualifiers: (4) Hypothyroid SNOMED Code(s): 73527691 ICD Code: E03.9 - HYPOTHYROIDISM, UNSPECIFIED Status: Acute Priority: Medium Current Visit: No Problem Details: Thyroid at this time on current dose (5) Palliative care patient SNOMED Code(s): 305736420 ICD Code: Z51.5 - ENCOUNTER FOR PALLIATIVE CARE Status: Acute Current Visit: No (6) Weakness SNOMED Code(s): 02853760 ICD Code: R53.1 - WEAKNESS Status: Acute Current Visit: No - Patient Summary/Data Consults: Consultations 05/27/19 09:06 Consult to Case Management/Locomotive Oiler [CONS] Routine Consult to Physician [CONS] Urgent PT Evaluation and Treatment [CONS] Routine - Patient Instructions Diet: Usual Diet as Tolerated - Discharge Plan *PRESCRIPTION DRUG MONITORING PROGRAM REVIEWED*: Not Applicable *COPY OF PRESCRIPTION DRUG MONITORING REPORT IN PATIENT RHYS: Not Applicable Home Medications: Home Meds Escitalopram [Lexapro] 10 mg PO DAILY 05/22/19 [History] Levothyroxine [Synthroid] 50 mcg PO ACBREAKFAST 05/22/19 [History] atorvaSTATin [Lipitor] 40 mg PO BEDTIME 05/22/19 [History] Aspirin 325 mg PO DAILY 05/23/19 [History] Magnesium Oxide 500 mg PO 1200 tablet 06/15/19 [Rx] buPROPion [Wellbutrin SR] 100 mg PO DAILY tab.sr 06/15/19 [Rx] Forms: Interfacility Transfer EMTALA - Discharge Summary/Plan Comment DC Time >30 min.: Yes - Patient Data Vitals - Most Recent: Last Vital Signs Temp 96.7 F 06/15/19 13:37 Pulse 63 06/15/19 13:37 Resp 20 06/15/19 13:37 BP 76/48 L 06/15/19 13:37 Pulse Ox 97 06/15/19 13:37 Weight - Most Recent: 108 lb 3.2 oz I&O - Last 24 hours: Intake & Output 06/14/19 06/15/19 06/15/19 22:59 06:59 14:59 Intake Total 350 50 200 Output Total 500 600 Balance 350 -450 -400 Lab Results - Last 24 hrs: Laboratory Results - last 24 hr 06/15/19 06/15/19 06/15/19 Range/Units 13:30 13:30 13:30 WBC 10.81 H (5.00-10.00) 10^3/uL RBC 3.43 L (4.50-6.00) 10^6/uL Hgb 10.7 L (13.0-17.0) g/dL Hct 33.5 L (40.0-52.0) % MCV 97.7 H D (82.0-92.0) fL MCH 31.2 H (27.0-31.0) pg MCHC 31.9 L (32.0-36.0) g/dL RDW 14.4 (11.5-14.5) % Plt Count 274 (150-400) 10^3/uL MPV 11.1 H (7.4-10.4) fL Immature Gran % (Auto) 0.1 (0.0-5.0) % Neut % (Auto) 67.8 (50.0-70.0) % Lymph % (Auto) 20.4 (20.0-40.0) % [place] % (Auto) 7.5 (2.0-8.0) % Eos % (Auto) 3.4 H (1.0-3.0) % Baso % (Auto) 0.8 (0.0-1.0) % Immature Gran # (Auto) 0.01 (0.00-0.50) 10^3/uL Neut # (Auto) 7.32 H (2.50-7.00) 10^3/uL Lymph # (Auto) 2.21 (1.00-4.00) 10^3/uL [place] # (Auto) 0.81 H (0.10-0.80) 10^3/uL Eos # (Auto) 0.37 H (0.10-0.30) 10^3/uL Baso # (Auto) 0.09 (0.00-0.10) 10^3/uL PT 9.6 (8.9-11.4) SEC INR 0.9 (0.9-1.1) Sodium 140 (136-145) mmol/L Potassium 4.2 (3.3-5.3) mmol/L Chloride 104 (98-115) mmol/L Carbon Dioxide 23.0 (21.0-32.0) mmol/L Anion Gap 17.2 H (5-15) mmol/L BUN 43 H (6-25) mg/dL Creatinine 1.59 H (0.51-1.17) mg/dL Est Cr Clr Drug Dosing 25.29 mL/min Estimated GFR (MDRD) 42 mL/min Glucose 167 H (75 - 99) mg/dL Calcium 8.6 L (8.7-10.3) mg/dL Med Orders - Current: Current Medications Acetaminophen (Tylenol) 650 mg PO Q6H PRN PRN Reason: sinus pressure Last Admin: 06/02/19 20:09 Dose: 650 mg Aspirin (Ecotrin) 325 mg PO DAILY [facility] Last Admin: 06/15/19 08:03 Dose: 325 mg Atorvastatin Calcium (Lipitor) 40 mg PO BEDTIME [facility] Last Admin: 06/14/19 20:11 Dose: 40 mg Bisacodyl (Dulcolax) 5 - 10 mg PO ASDIRECTED PRN PRN Reason: Constipation Last Admin: 06/07/19 06:32 Dose: 5 mg Bupropion HCl (Wellbutrin Sr) 100 mg PO DAILY [facility] Last Admin: 06/15/19 08:03 Dose: 100 mg Enoxaparin Sodium (Lovenox) 40 mg SUBCUT Q24H [facility] Last Admin: 06/15/19 08:03 Dose: 40 mg Escitalopram Oxalate (Lexapro) 10 mg PO DAILY [facility] Last Admin: 06/15/19 08:03 Dose: 10 mg Sodium Chloride (Normal Saline) 1,000 mls @ 125 mls/hr IV ASDIRECTED [facility] Last Admin: 06/15/19 14:05 Dose: 125 mls/hr Levothyroxine Sodium (Synthroid) 50 mcg PO ACBREAKFAST [facility] Last Admin: 06/15/19 06:33 Dose: 50 mcg Magnesium Oxide (Magnesium Oxide) 500 mg PO 1200 [facility] Last Admin: 06/15/19 12:09 Dose: 500 mg Non-Formulary Medication (Enzalutamide [Xtandi]) 160 mg PO DAILY [facility] Sodium Chloride (Saline Flush) 10 ml FLUSH Q8HR PRN PRN Reason: keep vein open Last Admin: 06/15/19 14:05 Dose: 10 ml Discontinued Medications Aspirin (Ecotrin) 325 mg PO DAILY [facility] Atorvastatin Calcium (Lipitor) 40 mg PO BEDTIME [facility] Escitalopram Oxalate (Lexapro) 10 mg PO DAILY [facility] Levothyroxine Sodium (Synthroid) 50 mcg PO ACBREAKFAST [facility] Magnesium Oxide (Magnesium Oxide) 500 mg PO DAILY [facility] Last Admin: 06/03/19 09:49 Dose: 500 mg Magnesium Oxide (Magnesium Oxide) 500 mg PO DAILY [facility] Sodium Chloride (Saline Flush) 10 ml FLUSH Q8HR PRN PRN Reason: keep vein open - Exam General: Reports: Alert, Oriented, Cooperative, No Acute Distress Lungs: Reports: Clear to Auscultation, Normal Respiratory Effort Cardiovascular: Reports: Regular Rate, Regular Rhythm, No Murmurs (Male) Exam: Other (Large blood clot removed from the end of penis that passed from urethra outside of the catheter tubing. Blood present in the christie bag.) Extremities: Normal Inspection, No Pedal Edema Skin: Reports: Other (Healing bilateral decub ulcers present on admission)
== END 2019-06-15 16:25 | DRG 948 ==
LOC: KA.MS 10:00
PROVIDERS: ADMIT Internal Medicine; ATTEND Internal Medicine
DX: R53.1 Weakness (principal); N39.0 Urinary tract infection, site not specified; E46 Unspecified protein-calorie malnutrition; F32.2 Major depressive disorder, single episode, severe without psychotic features; T83.83XA Hemorrhage due to genitourinary prosthetic devices, implants and grafts, initial encounter; Z68.1 Body mass index [BMI] 19.9 or less, adult; N18.2 Chronic kidney disease, stage 2 (mild); Z51.5 Encounter for palliative care; I95.1 Orthostatic hypotension; E83.42 Hypomagnesemia; E83.39 Other disorders of phosphorus metabolism; C61 Malignant neoplasm of prostate; L89.302 Pressure ulcer of unspecified buttock, stage 2; E03.9 Hypothyroidism, unspecified; Z79.82 Long term (current) use of aspirin; Z79.899 Other long term (current) drug therapy; I25.2 Old myocardial infarction; Z88.2 Allergy status to sulfonamides
CPT/HCPCS: 36415; 51702; 51798; 80048; 80053; 83735; 84100; 85025; 85610; 97110-GP; 97162-GP; 97537-GP; A9270-GY; J1650; J7030